=== PATIENT | male | born 1975 | race Caucasian/White ===

== ENCOUNTER 2021-03-06 19:29 | Inpatient (IN) | payer SELFPAY ==
--- OUTSIDE RECORDS SUMMARY | 2021-03-06 19:34 | XMS REPORT | Continuity of Care Document ---
:1975 Author Organization [facility] t Address [address] [place] [address] Care Team Providers Name Role Phone Nelson HERNADEZ Attending Clinician Unavailable BEVERLY Attending Clinician Unavailable ADONIS Attending Clinician Unavailable Nelson HERNADEZ Admitting Clinician Unavailable PAUL Admitting Clinician Unavailable ADONIS Admitting Clinician Unavailable Problems This patient has no known problems. Allergies, Adverse Reactions, Alerts This patient has no known allergies or adverse reactions. Medications This patient has no known medications. Procedures This patient has no known procedures. Results Test Description Test Time Test Comments Results Result Comments Source ALCOHOL, SERUM 2020-01-22 08:58:00 Test Item Value Reference Range Interpretation Comme nts Alcohol % (test code = ALCPC) 0.06 % 0.00-0.00 H Ethanol % 0.00 - 0.10 Sub-clinical 0.11 - 0 .20 Emotional Instability 0.21 - 0.30 Confusion 0.31 - 0.40 Stupor 0.41 - 0.5 0 Coma >.50 Fatal ALCOHOL, [id number] 05:29:00 Test Item Value Reference Range Interpretation Comments Alcohol % (test code = 0.12 % 0.00-0.00 H Jae ol % 0.00 - 0.10 ALCPC) Sub-clinical 0.11 - 0.20 Emotion al Instability 0.21 - 0.30 Confusion 0.31 - 0.40 Stupor 0.41 - 0.50 Co ma >.50 Fa megan DRUG SCREEN [id number] 01:27:00 Test Item Value Reference Range Interpretation Comments PH (test code = 5.5 UPH) Specific [place] 1.025 (test code = USPGR) FT (test code = Negative AMPHET) (qualifier value) FT (test code = Negative NISHA) (qualifier value) FT (test code = Negative BENZO) (qualifier value) FT (test code = Negative CHARLIE) (qualifier value) FT (test code = Negative MTD) (qualifier value) FT (test code = Negative OPIAT) (qualifier value) FT (test code = Negative The followin g table PCP) (qualifier provides an value) interpretive gu michel for the Drugs of Ab use ran on the Siemens Emmett analyzer listed there in: Ampheta mines < 1000 ng/ml = Negative Barbituates < 200 ng/ml = Negat jamshid Benzodiazapines < 200 ngml = Negat jamshid Cocaine < 300 ng/ml = Negat jamshid Methadone < 300 ng/ml = Negat jamshid Opiate < 300 ng/ml = Negat jamshid PCP < 25 ng/ml = Nega tive THC < 50 ng/ml = Negat jamshid Results equal t o or greater than th e above cut-off values = Presumptive Pos itive. Confirmation of Presumptive Pos itive results are ruddy ilable upon request. FT (test code = Negative THC) (qualifier value) URINALYSIS WITH [id number] 01:17:00 Test Item Value Reference Range Interpretation Comments Color (test code = UCOLR) Yellow Clarity (test code = Clear UCLAR) Glucose (test code = NEGATIVE NEGATIVE N UGLUC) Bilirubin (test code = Small NEGATIVE A UBILI) Ketones (test code = NEGATIVE NEGATIVE N UKET) Specific [place] (test 1.025 1.005-1.030 A code = USPGR) Blood (test code = UBLD) Trace-Intact NEGATIVE A PH (test code = UPH) 5.5 4.5-8.0 A Protein (test code = 100 NEGATIVE A UPROT) Urobilinogen (test code = 0.2 >0.2 N U UROB) Nitrite (test code = NEGATIVE NEGATIVE N UNITR) Leukocyte Esterase (test NEGATIVE NEGATIVE N code = ULEUK) WBC (test code = WBCUR) 1-3 0-5 A RBC (test code = RBCUR) 0-2 0-5 A Epithial Cells (test code 0-5 0-10 A = U EPI) Mucous (test code = UMUC) Large None Seen A Bacteria (test code = 1+ None Seen,Trace A UBACT) Urine Casts (test code = Rare Hyaline Cast None Seen A UR CAST) Rare Fine Granular Cast CBC WITH AUTO [id number] 01:16:00 Test Item Value Reference Range Interpretation Comments WBC (test code = 6.73 10\\S\\3/ul 4.80-10.80 WBC) RBC (test code = 4.83 10\\S\\6/ul 4.70-6.10 RBC) Hemoglobin (test 15.5 gm/dl 14.0-18.0 code = HGB) Hematocrit (test 44.1 % 42.0-50.0 code = HCT) MCV (test code = 91.3 fL 80.0-94.0 MCV) MCH (test code = 32.1 pg 27.0-31.0 H MCH) MCHC (test code = 35.1 gm/dl 33.0-37.0 MCHC) RDW (test code = 13.8 % 11.5-14.5 RDWVC) Platelet (test code 76 10\\S\\3/ul 130-400 L = PLT) MPV (test code = 10.4 fL 7.4-10.4 A "NOT MEASUR ED" MPV) RESULTS ARE DIS PLAYED WHEN THE INSTRU MENT HAS A SUPPRESSE D OR UNREPORTABLE RE SULT. THIS WILL MOST OFTEN HAPPEN WITH THE MPV WHEN THERE IS A N ABNORMAL PLATEL ET DISTRIBUTION DU E TO A CRITICAL LOW VA LUE OR PLATELET CLUMPI NG. THE RDW MAY BE SUPPRESSED IF T HERE ARE MULTIPLE PE AKS PRESENT ON THE RBC HISTOGRAM. IN THIS CASE, A MANUAL REVIEW OF THE SLIDE WI LL BE PERFORMED, AND RBC MORPHOLOGY WILL BE NOTED ON THE RE PORT. NE% (test code = 43.7 % 42.0-75.0 NE) LY% (test code = 44.6 % 13.0-42.0 H LY) MO% (test code = 8.2 % 4.0-14.0 MO) EO% (test code = 2.8 % 1.0-5.0 EO) BA% (test code = 0.6 % 0.0-3.0 BA) IG% (test code = 0.1 % 0.0-0.4 IG%) SALICYLATES (Aspirin)2020-01-22 01:16:00 Test Item Value Reference Range Interpretation Comments Salicylate (test code <1.7 mg/dl 0.0-30.0 N Salicy lates Reference = SALI) Ranges: Therap eutic 15 - 30 mg/dl Toxicity >30 mg/dl Leth al >70 mg/dl TSH (Ultra Sensitive)2020-01-22 01:07:00 Test Item Value Reference Range Interpretation Comments TSH (test code = TSH) 1.50 mIU/L 0.47-4.68 [id number] 01:07:00 Test Item Value Reference Range Interpretation Comments Glucose (test code 87 mg/dl 75-110 = GLU) BUN (test code = 6.0 mg/dl 6.0-17.0 BUN) Creatinine (test 0.5 mg/dl 0.4-1.2 code = CREA) Sodium (test code = 142 mmol/l 137-145 NA) Potassium (test 3.6 mmol/l 3.5-5.0 code = K) Chloride (test code 113 mmol/l 98-107 H = CL) CO2 (test code = 26 mmol/l 22-30 CO2) Calcium (test code 7.9 mg/dl 8.4-10.2 L = CALC) T Protein (test 6.7 gm/dl 5.1-8.7 code = TP) Albumin (test code 2.7 gm/dl 3.5-4.6 L = ALB) A/G Ratio (test 0.7 % 1.1-2.2 L code = AGRAT) AST (SGOT) (test 72 U/L 11-36 H code = AST) ALT (SGPT) (test 64 U/L 11-40 H code = ALT) Alkaline Phos (test 129 U/L 47-114 H code = ALKP) Total Bilirubin 1.1 mg/dl 0.2-1.2 (test code = TBIL) Globulin (test code 4.0 gm/dl 2.3-3.5 H = GLOBU) Calcium, Corrected 8.9 mg/dl 8.4-10.2 Various f ormulas exist (test code = for corrected s tu CALCCORR) calcium results , each yielding differ ent values. This corrected resul t was based on the fo rmula: Corrected Calci um = SerumCalcium + [0.8 * ( 4 - SerumAlbu min)] EGFR if >60 [place] (test code mL/min/1.73m\\ = EGFRAA) S\\2 EGFR if Non- >60 Estimate d Glomerular [place] (test code mL/min/1.73m\\ Filtrat ion Rate (eGFR) = EGFRNA) S\\2 Reference Inter vals Decision Points for 18 years and older and average body ma ss: >= 60 Does not exc lude kidney disease. 30 - 59 Suggests modera te chronic kidney disease and indicat es the need for furthe r investigation including asses sment of proteinuria and cardiovascular factors. < 30 Usually in dicates a need for refe rral for assessment and management of c hronic kidney failure. ALCOHOL, [id number] 00:58:00 Test Item Value Reference Range Interpretation Comments Alcohol % (test code = 0.20 % 0.00-0.00 H Jae ol % 0.00 - 0.10 ALCPC) Sub-clinical 0.11 - 0.20 Emotion al Instability 0.21 - 0.30 Confusion 0.31 - 0.40 Stupor 0.41 - 0.50 Co ma >.50 Fa megan ACETAMINOPHEN (Tyenol)2020-01-22 00:58:00 Test Item Value Reference Range Interpretation Comments Acetaminophen (test code = ACET) <2 ug/ml 10-30 L [id number] 00:58:00 Test Item Value Reference Range Interpretation Comments CPK (test code = CPK) 130 U/L 30-135 SALICYLATES (Aspirin)2019-10-18 21:07:00 Test Item Value Reference Range Interpretation Comments Salicylate (test code <1.7 mg/dl 0.0-30.0 N Salicy lates Reference = SALI) Ranges: Therap eutic 15 - 30 mg/dl Toxicity >30 mg/dl Leth al >70 mg/dl ALCOHOL, [id number] 20:49:00 Test Item Value Reference Range Interpretation Comments Alcohol % (test code = 0 % 0.00-0.00 N Jae ol % 0.00 - 0.10 ALCPC) Sub-clinical 0.11 - 0.20 Emotional Instability 0.21 - 0.30 Confusion 0.31 - 0.40 Stupor 0.41 - 0.50 Coma >.50 Fatal ACETAMINOPHEN (Tyenol)2019-10-18 20:49:00 Test Item Value Reference Range Interpretation Comments Acetaminophen (test code = ACET) <2 ug/ml 10-25 L [id number] 20:49:00 Test Item Value Reference Range Interpretation Comments Glucose (test code 110 mg/dl 75-110 = GLU) BUN (test code = 16.0 mg/dl 6.0-17.0 BUN) Creatinine (test 0.8 mg/dl 0.4-1.2 code = CREA) Sodium (test code = 139 mmol/l 137-145 NA) Potassium (test 4.2 mmol/l 3.5-5.0 code = K) Chloride (test code 105 mmol/l 98-107 = CL) CO2 (test code = 28 mmol/l 22-30 CO2) Calcium (test code 9.3 mg/dl 8.4-10.2 = CALC) T Protein (test 8.4 gm/dl 5.1-8.7 code = TP) Albumin (test code 3.0 gm/dl 3.5-4.6 L = ALB) A/G Ratio (test 0.6 % 1.1-2.2 L code = AGRAT) AST (SGOT) (test 78 U/L 11-36 H code = AST) ALT (SGPT) (test 112 U/L 11-40 H code = ALT) Alkaline Phos (test 128 U/L 47-114 H code = ALKP) Total Bilirubin 1.6 mg/dl 0.2-1.2 H (test code = TBIL) Globulin (test code 5.4 gm/dl 2.3-3.5 H = GLOBU) Calcium, Corrected 10.1 mg/dl 8.4-10.2 Various f ormulas exist (test code = for corrected s tu CALCCORR) calcium results , each yielding differ ent values. This corrected resul t was based on the fo rmula: Corrected Calci um = SerumCalcium + [0.8 * ( 4 - SerumAlbu min)] EGFR if >60 [place] (test code mL/min/1.73m\\ = EGFRAA) S\\2 EGFR if Non- >60 Estimate d Glomerular [place] (test code mL/min/1.73m\\ Filtrat ion Rate (eGFR) = EGFRNA) S\\2 Reference Inter vals Decision Points for 18 years and older and average body ma ss: >= 60 Does not exc lude kidney disease. 30 - 59 Suggests modera te chronic kidney disease and indicat es the need for furthe r investigation including asses sment of proteinuria and cardiovascular factors. < 30 Usually in dicates a need for refe rral for assessment and management of c hronic kidney failure. CBC WITH AUTO [id number] 20:26:00 Test Item Value Reference Range Interpretation Comments WBC (test code = 11.21 4.80-10.80 H WBC) 10\\S\\3/ul RBC (test code = 5.75 10\\S\\6/ul 4.70-6.10 RBC) Hemoglobin (test 18.2 gm/dl 14.0-18.0 H code = HGB) Hematocrit (test 51.5 % 42.0-50.0 H code = HCT) MCV (test code = 89.6 fL 80.0-94.0 MCV) MCH (test code = 31.7 pg 27.0-31.0 H MCH) MCHC (test code = 35.3 gm/dl 33.0-37.0 MCHC) RDW (test code = 14.5 % 11.5-14.5 RDWVC) Platelet (test code 116 10\\S\\3/ul 130-400 L = PLT) MPV (test code = 10.6 fL 7.4-10.4 A "NOT MEASUR ED" MPV) RESULTS ARE DIS PLAYED WHEN THE INSTRU MENT HAS A SUPPRESSE D OR UNREPORTABLE RE SULT. THIS WILL MOST OFTEN HAPPEN WITH THE MPV WHEN THERE IS A N ABNORMAL PLATEL ET DISTRIBUTION DU E TO A CRITICAL LOW VA LUE OR PLATELET CLUMPI NG. THE RDW MAY BE SUPPRESSED IF T HERE ARE MULTIPLE PE AKS PRESENT ON THE RBC HISTOGRAM. IN THIS CASE, A MANUAL REVIEW OF THE SLIDE WI LL BE PERFORMED, AND RBC MORPHOLOGY WILL BE NOTED ON THE RE PORT. NE% (test code = 61.5 % 42.0-75.0 NE) LY% (test code = 22.3 % 13.0-42.0 LY) MO% (test code = 13.9 % 4.0-14.0 MO) EO% (test code = 1.1 % 1.0-5.0 EO) BA% (test code = 0.8 % 0.0-3.0 BA) IG% (test code = 0.4 % 0.0-0.4 IG%) DRUG SCREEN [id number] 20:08:00 Test Item Value Reference Range Interpretation Comments PH (test code = UPH) 6.0 Specific [place] >=1.030 (test code = USPGR) Amphetamines (test Positive code = AMPHET) BARBITUATES (test Positive code = NISHA) Benzodiazepines (test Positive code = BENZO) FT (test code = CHARLIE) Negative (qualifier value) FT (test code = MTD) Negative (qualifier value) FT (test code = Negative OPIAT) (qualifier value) FT (test code = PCP) Negative The fol lowing table (qualifier provides an value) interpretive gu michel for the Drugs o f Abuse ran on Siemens Emmett analyzer listed there in: Amphetamines < 1000 ng/ml = Negative Barbituates < 200 ng/ml = Negative Benzodiazapines < 200 ngml = Negative Charlie ayan < 300 ng/ml = Negative Methadone < 300 ng/ml = Negative Opi ate < 300 ng/ml = Negative PCP < 2 5 ng/ml = Negati ve THC < 50 ng/ml = Negative Resul ts equal to or gre ater than the above cut-off values = Presumptive Positive. Confirmation of Presumptive Pos itive results are available upon request. FT (test code = THC) Negative (qualifier value) URINALYSIS WITH [id number] 20:06:00 Test Item Value Reference Range Interpretation Comments Color (test code = UCOLR) [place] Clarity (test code = Sl Cloudy UCLAR) Glucose (test code = 100 NEGATIVE A UGLUC) Bilirubin (test code = Small NEGATIVE A UBILI) Ketones (test code = NEGATIVE NEGATIVE N UKET) Specific [place] (test >=1.030 1.005-1.030 A code = USPGR) Blood (test code = UBLD) NEGATIVE NEGATIVE N PH (test code = UPH) 6.0 4.5-8.0 A Protein (test code = 100 NEGATIVE A UPROT) Urobilinogen (test code = 4.0 >0.2 A U UROB) Nitrite (test code = Positive NEGATIVE A UNITR) Leukocyte Esterase (test Trace NEGATIVE A code = ULEUK) WBC (test code = WBCUR) 8-12 0-5 A RBC (test code = RBCUR) 0-1 0-5 A Epithial Cells (test code None Seen 0-10 A = U EPI) Mucous (test code = UMUC) Moderate None Seen A Bacteria (test code = Trace None Seen,Trace N UBACT) Crystals Urine (test code Trace Calcium None Seen A = URCRYS) Oxalate DRUG SCREEN [id number] 04:26:00 Test Item Value Reference Range Interpretation Comments PH (test code = 6.0 UPH) Specific [place] 1.010 (test code = USPGR) Amphetamines (test Positive code = AMPHET) FT (test code = Negative NISHA) (qualifier value) FT (test code = Negative BENZO) (qualifier value) FT (test code = Negative CHARLIE) (qualifier value) FT (test code = Negative MTD) (qualifier value) FT (test code = Negative OPIAT) (qualifier value) FT (test code = Negative The followin g table PCP) (qualifier provides an value) interpretive gu michel for the Drugs o f Abuse ran on e Siemens Emmett analyzer listed there in: Ampheta mines < 1000 ng/ml = Negative Barbituates < 200 ng/ml = Negative Benzodiazapines < 200 ngml = Negative Charlie ayan < 300 n g/ml = Negative Methadone < 300 ng/ml = Negative Opi ate < 300 n g/ml = Negative P CP < 25 ng/ml = Negati ve THC < 50 ng/ml = Nega tive Results equal t o or greater than th e above cut-off v alues = Presumptive Positive. Confirmation of Presumptive Pos itive results are ruddy ilable upon request. Cannabinoids, THC Positive (test code = THC) URINALYSIS WITH [id number] 04:17:00 Test Item Value Reference Range Interpretation Comments Color (test code = UCOLR) Yellow Clarity (test code = UCLAR) Clear Glucose (test code = UGLUC) NEGATIVE NEGATIVE N Bilirubin (test code = UBILI) NEGATIVE NEGATIVE N Ketones (test code = UKET) NEGATIVE NEGATIVE N Specific [place] (test code = 1.010 1.005-1.030 A USPGR) Blood (test code = UBLD) Trace-Intact NEGATIVE A PH (test code = UPH) 6.0 4.5-8.0 A Protein (test code = UPROT) 30 NEGATIVE A Urobilinogen (test code = U 2.0 >0.2 A UROB) Nitrite (test code = UNITR) NEGATIVE NEGATIVE N Leukocyte Esterase (test code = NEGATIVE NEGATIVE N ULEUK) WBC (test code = WBCUR) None seen 0-5 A RBC (test code = RBCUR) 0-1 0-5 A Epithial Cells (test code = U None seen 0-10 A EPI) Bacteria (test code = UBACT) None seen None Seen,Trace A TROPONIN-I [id number] 03:25:00 Test Item Value Reference Range Interpretation Comments Troponin-I (test <0.015 ng/ml 0.000-0.034 N [address] URL code = TROP) is 0.045 ng/mL for the Siemens Emmett T roponin I. The Joint [place] Society of Cardiology/[facility] College of Card iology (ESC/ACC) and t [facility] of Clinical [place] Standards of [place] boratory Practices (NACB ) recommends that the diagnosis of AM I includes the presence of clinical history suggest jamshid of Acute Coronary Syndrome (ACS) and a max imum concentration o f cardiac troponin exceed ing the 99th percentile of a normal referenc e population [upp er reference limit (URL)] on at least one oc casion during the firs t 24 hours after the clini amos event. XR CHEST AP/PA 1 [id number] 03:24:46EXAMINATION: XR CHEST AP/PA 1 VIEWINDICATION: Dyspnea.[phone]: March 03, 2015.FINDINGS:TUBES and LINES: None.LUNGS: Lungs are well inflated. Lungs are clear. There is no evidence ofpneumonia or pulmonary edema.PLEURA: No pleural effusion or pneumothorax.HEART AND MEDIASTINUM: Thecardiomediastinal silhouette is unremarkable.BONES AND SOFT TISSUES: No acute osseous lesion. Softtissues areunremarkable.UPPER ABDOMEN: No free air under the diaphragm.IMPRESSION:No acute thoracic abnormality.This final report was electronically signed by Dr Jack Lopes MD 10/05/2019 3:18AMDictated By: JACK LOPESDate: 10/05/2019 03:18ACETAMINOPHEN (Tyenol)2019-10-05 03:21:00 Test Item Value Reference Range Interpretation Comments Acetaminophen (test code = ACET) <2 ug/ml 10-25 L ALCOHOL, [id number] 03:21:00 Test Item Value Reference Range Interpretation Comments Alcohol % (test code = 0.07 % 0.00-0.00 H Jae ol % 0.00 - 0.10 ALCPC) Sub-clinical 0.11 - 0.20 Emotion al Instability 0.21 - 0.30 Confusion 0.31 - 0.40 Stupor 0.41 - 0.50 Co ma >.50 Fa megan [id number] 03:12:00 Test Item Value Reference Range Interpretation Comments Lipase (test code = LIPA) 213 U/L 8-223 [id number] 03:12:00 Test Item Value Reference Range Interpretation Comments Glucose (test code 72 mg/dl 75-110 L = GLU) BUN (test code = 10.0 mg/dl 6.0-17.0 BUN) Creatinine (test 0.6 mg/dl 0.4-1.2 code = CREA) Sodium (test code = 137 mmol/l 137-145 NA) Potassium (test 3.6 mmol/l 3.5-5.0 code = K) Chloride (test code 102 mmol/l 98-107 = CL) CO2 (test code = 27 mmol/l 22-30 CO2) Calcium (test code 9.1 mg/dl 8.4-10.2 = CALC) T Protein (test 8.0 gm/dl 5.1-8.7 code = TP) Albumin (test code 2.9 gm/dl 3.5-4.6 L = ALB) A/G Ratio (test 0.6 % 1.1-2.2 L code = AGRAT) AST (SGOT) (test 98 U/L 11-36 H code = AST) ALT (SGPT) (test 74 U/L 11-40 H code = ALT) Alkaline Phos (test 125 U/L 47-114 H code = ALKP) Total Bilirubin 1.5 mg/dl 0.2-1.2 H (test code = TBIL) Globulin (test code 5.1 gm/dl 2.3-3.5 H = GLOBU) Calcium, Corrected 10.0 mg/dl 8.4-10.2 Various f ormulas exist (test code = for corrected s tu CALCCORR) calcium results , each yielding differ ent values. This corrected resul t was based on the fo rmula: Corrected Calci um = SerumCalcium + [0.8 * ( 4 - SerumAlbu min)] EGFR if >60 [place] (test code mL/min/1.73m\\ = EGFRAA) S\\2 EGFR if Non- >60 Estimate d Glomerular [place] (test code mL/min/1.73m\\ Filtrat ion Rate (eGFR) = EGFRNA) S\\2 Reference Inter vals Decision Points for 18 years and older and average body ma ss: >= 60 Does not exc lude kidney disease. 30 - 59 Suggests modera te chronic kidney disease and indicat es the need for furthe r investigation including asses sment of proteinuria and cardiovascular factors. < 30 Usually in dicates a need for refe rral for assessment and management of c hronic kidney failure. SALICYLATES (Aspirin)2019-10-05 03:09:00 Test Item Value Reference Range Interpretation Comments Salicylate (test code <1.7 mg/dl 0.0-30.0 N Salicy lates Reference = SALI) Ranges: Therap eutic 15 - 30 mg/dl Toxicity >30 mg/dl Leth al >70 mg/dl [id number] 02:58:00 Test Item Value Reference Range Interpretation Comments aPTT (test code = PTT) 27.4 seconds 25.3-35.7 PT AND [id number] 02:58:00 Test Item Value Reference Range Interpretation Comments Protime (test code 11.1 seconds 9.0-11.8 = PT) INR (test code = 1.1 0.9-1.1 INR results are INR) intended ONLY t o monitor Oral Anticoagulant t herapy in stablized pa tients. The INR Therape utic Range is 2.0 - 3.0 Patients with a mechanical hear t, the INR Range is 2. 5 - 3.5 CBC WITH AUTO [id number] 02:35:00 Test Item Value Reference Range Interpretation Comments WBC (test code = 6.84 10\\S\\3/ul 4.80-10.80 WBC) RBC (test code = 5.08 10\\S\\6/ul 4.70-6.10 RBC) Hemoglobin (test 16.1 gm/dl 14.0-18.0 code = HGB) Hematocrit (test 44.4 % 42.0-50.0 code = HCT) MCV (test code = 87.4 fL 80.0-94.0 MCV) MCH (test code = 31.7 pg 27.0-31.0 H MCH) MCHC (test code = 36.3 gm/dl 33.0-37.0 MCHC) RDW (test code = 13.2 % 11.5-14.5 RDWVC) Platelet (test code 72 10\\S\\3/ul 130-400 L = PLT) MPV (test code = 9.9 fL 7.4-10.4 A "NOT MEASUR ED" MPV) RESULTS ARE DIS PLAYED WHEN THE INSTRU MENT HAS A SUPPRESSE D OR UNREPORTABLE RE SULT. THIS WILL MOST OFTEN HAPPEN WITH THE MPV WHEN THERE IS A N ABNORMAL PLATEL ET DISTRIBUTION DU E TO A CRITICAL LOW VA LUE OR PLATELET CLUMPI NG. THE RDW MAY BE SUPPRESSED IF T HERE ARE MULTIPLE PE AKS PRESENT ON THE RBC HISTOGRAM. IN THIS CASE, A MANUAL REVIEW OF THE SLIDE WI LL BE PERFORMED, AND RBC MORPHOLOGY WILL BE NOTED ON THE RE PORT. NE% (test code = 51.2 % 42.0-75.0 NE) LY% (test code = 34.4 % 13.0-42.0 LY) MO% (test code = 11.8 % 4.0-14.0 MO) EO% (test code = 1.9 % 1.0-5.0 EO) BA% (test code = 0.4 % 0.0-3.0 BA) IG% (test code = 0.3 % 0.0-0.4 IG%)
[2021-03-06 21:08] LABS: Protime INR 1.21
[2021-03-06 21:12] LABS: Absolute Lymphocytes (CBC) 3.2 K/uL (0.7-4.9); Basophils % 0.5 % (0-1.3); Hematocrit 51.6 % (39.6-49.0); Lymphocytes % 22.2 % (15.3-44.8); MPV 10.1 fL (7.6-11.3); RBC Red Blood Cell Count 5.56 M/uL (4.33-5.43)
[2021-03-06] MEDS ORDERED: NA CHLORIDE 0.9% 2,000 ML ONE (21:12)
--- NOTE | 2021-03-06 21:20 | RAD REPORT ---
EXAM DESCRIPTION: [facility] Single View03/06/2021 9:11 pm CLINICAL HISTORY: Cough COMPARISON: none FINDINGS: Left lateral lung base is not included in the field of view and is not evaluated. The visualized lungs appear clear of acute infiltrate. The heart is normal size IMPRESSION: No acute abnormalities displayed
[2021-03-06 21:37] LABS: ALT/SGPT 109 U/L (12-78); AST/SGOT 117 U/L (15-37); Albumin 2.7 g/dL (3.4-5.0); Alkaline Phosphatase 108 U/L (45-117); Amylase 59 U/L (25-115); BUN Blood Urea Nitrogen 14 mg/dL (7-18); Bicarbonate 19 mmol/L (21-32); Bilirubin Direct 0.6 mg/dL (0-0.2); Bilirubin Total 1.8 mg/dL (0.2-1.0); CKMB Creatine Kinase MB 3.7 ng/mL (1.0-3.6); Creatine Phosphokinase 711 U/L (39-308); Glucose Level 95 mg/dL (74-106); Lipase 94 U/L (73-393); Potassium 3.4 mmol/L (3.5-5.1); Protein, Total 7.8 g/dL (6.4-8.2); Sodium Level 134 mmol/L (136-145); Troponin (Emerg Dept Use Only) < 0.02 ng/mL (0.0-0.045)
[2021-03-06 21:54] LABS: Urine Blood Trace-intact (Negative); Urine Glucose Negative (Negative); Urine Protein Negative (Negative); Urine Specific Gravity <=1.005 (1.005-1.030)
[2021-03-06] MEDS ORDERED: METOPROLOL TARTRATE 5 MG/5 ML INJ IV ONE ×2 (21:56→22:14)
[2021-03-06] MEDS ORDERED: MORPHINE 4 MG/ML SYR ONE (22:13)
[2021-03-06] MEDS ORDERED: ONDANSETRON 4 MG/2 ML VIAL ONE (22:13)
[2021-03-06 22:24] LABS: Blood Morphology Comment NOT SEEN (NOT SEEN); Platelet Estimate DECR; White Blood Cell Scan OK (OK)
[2021-03-06 22:25] LABS: Barbiturates NEGATIVE (NEGATIVE); Benzodiazepines NEGATIVE (NEGATIVE); Cocaine NEGATIVE (NEGATIVE); METHAMPHETAM POSITIVE (NEGATIVE); Methadone NEGATIVE (NEGATIVE); Opiates NEGATIVE (NEGATIVE); Phencyclidine NEGATIVE (NEGATIVE); THC Cannibis NEGATIVE (NEGATIVE)
[2021-03-06 22:29] LABS: Urine Bacteria <20 /HPF (NONE SEEN); Urine RBC <5 /HPF (NONE SEEN)
[2021-03-06] MEDS ORDERED: METOPROLOL TAR 50 MG TAB ONE (23:03)
[2021-03-06] MEDS ORDERED: NICOTINE 21 MG/PAT TD ONE (23:16)
[2021-03-06] MEDS ORDERED: NA CHLORIDE 0.9% 1,000 ML ONE (23:16)
--- NOTE | 2021-03-06 23:34 | ER ---
Nurse's Notes [facility] Name: Alonso Leigh Age: 45 yrs Sex: Male : 1975 Arrival Date: 03/06/2021 Time: 19:34 Bed 20 Private MD: Diagnosis: Paroxysmal atrial fibrillation-with RVR Presentation: 03/06 19:42 Chief complaint: Patient states: "A couple days ago I started feeling body aches, vg1 feeling fatigue, headache, trouble sleeping and I googled it and it looks like I may have Covid. Sometimes I feel shortness of breath." Pt also reports NVD. Coronavirus screen: Client denies travel out of the [place] in the last 14 days. Client presents with at least one sign or symptom that may indicate coronavirus-19. Standard/surgical mask placed on the client. Ebola Screen: Patient negative for fever greater than or equal to 101.5 degrees Fahrenheit, and additional compatible Ebola Virus Disease symptoms. Initial Sepsis Screen: Does the patient meet any 2 criteria? No. Patient's initial sepsis screen is negative. Does the patient have a suspected source of infection? No. Patient's initial sepsis screen is negative. Risk Assessment: Do you want to hurt yourself or someone else? Patient reports no desire to harm self or others. Onset of symptoms was March 04, 2021. 19:42 Method Of Arrival: Ambulatory [facility] 19:42 Acuity: SHAWN 3 vg1 Triage Assessment: 19:44 Headache History: The patient has had previous headaches and this one is different than vg1 previous episodes, and this one is more severe than previous episodes. General: Appears in no apparent distress. uncomfortable, Behavior is calm, cooperative. Pain: Pain currently is 8 out of 10 on a pain scale. Pain began 2-3 days ago. Also complains of nausea, shortness of breath. Neuro: Level of Consciousness is awake, alert, obeys commands, Oriented to person, place, time, situation, Reports headache. Historical: - Allergies: 19:44 No Known Allergies; vg1 - Home Meds: 19:44 None [Active]; vg1 - PMHx: 19:44 Hypertensive disorder; vg1 - Immunization history:: Adult Immunizations up to date. - Social history:: Smoking status: Patient reports the use of cigarette tobacco products, smokes one pack cigarettes per day. Screenin:23 Abuse screen: Denies threats or abuse. Nutritional screening: No deficits noted. ea Tuberculosis screening: No symptoms or risk factors identified. Fall Risk None identified. Assessment: 20:58 General: Appears uncomfortable, Behavior is appropriate for age. Pain: Complains of ea pain in generalized pain. Neuro: Level of Consciousness is awake, alert, obeys commands, Oriented to person, place, time. Cardiovascular: Patient's skin is warm and dry. Respiratory: Airway is patent Respiratory effort is even, unlabored, Respiratory pattern is regular, symmetrical. Derm: Skin is pink, warm \\T\\ dry. 22:22 Reassessment: Patient and/or family updated on plan of care and expected duration. Pain ea level reassessed. Patient is alert, oriented x 3, equal unlabored respirations, skin warm/dry/pink. Returned from CT. 03/07 00:22 Reassessment: Patient and/or family updated on plan of care and expected duration. Pain ea level reassessed. Patient is alert, oriented x 3, equal unlabored respirations, skin warm/dry/pink. Pt admitted admitted to second floor. Report given to receiving nurse. Pt left ED via wheelchair per tech. Pt tolerating well. Vital Signs: 03/06 19:42 BP 130 / 92; Pulse 75; Resp 18; Temp 97.8; Pulse Ox 98% ; Weight 90.72 kg; Height 6 ft. vg1 1 in. (185.42 cm); Pain 8/10; 21:00 Pulse 175; Resp 22; Pulse Ox 99% ; ea 21:40 BP 135 / 90; Pulse 142; Resp 18; Pulse Ox 100% ; ea 22:22 BP 143 / 108; Pulse 120; Resp 20; Pulse Ox 100% ; ea 03/07 00:20 BP 140 / 85; Pulse 110; Resp 16; Pulse Ox 99% ; ea 03/06 19:42 Body Mass Index 26.39 (90.72 kg, 185.42 cm) vg1 ED Course: 03/06 19:34 Patient arrived in ED. es 19:44 Triage completed. vg1 19:44 Arm band placed on Patient placed in waiting room, Patient notified of wait time. vg1 20:23 Latonya Brown, RN is Primary Nurse. ea 20:26 Rory Matt MD is Attending Physician. [facility] 20:58 Patient has correct armband on for positive identification. Bed in low position. Call ea light in reach. Side rails up X2. 20:58 Inserted saline lock: 20 gauge in right forearm, using aseptic technique. ea 21:10 Chest Single View XRAY In Process Unspecified. EDMS 22:14 CT Head Brain wo Cont In Process Unspecified. EDMS 22:14 CT Chest For PE Angio In Process Unspecified. EDMS 22:14 CT Abd/Pelvis - IV Contrast Only In Process Unspecified. EDMS 23:33 En Lopez MD is Hospitalizing Provider. [facility] 03/07 00:18 No provider procedures requiring assistance completed. Patient admitted, IV remains in ea place. Administered Medications: 03/06 21:00 Drug: NS 0.9% 1000 ml Route: IV; Rate: 1 bolus; Site: right forearm; ea 22:30 Follow up: Response: No adverse reaction; IV Status: Completed infusion; IV Intake: ea 1000ml 21:45 Drug: Lopressor (metoprolol) 5 mg Route: IVP; Site: right forearm; ea 21:48 Drug: NS 0.9% 1000 ml Route: IV; Rate: 1 bolus; Site: right forearm; ea 03/07 00:20 Follow up: Response: No adverse reaction; IV Status: Completed infusion; IV Intake: ea 1000ml 03/06 22:20 Drug: morphine 4 mg Route: IVP; Site: right forearm; ea 22:46 Follow up: Response: No adverse reaction ea 22:20 Drug: Zofran (Ondansetron) 4 mg Route: IVP; Site: right forearm; ea 03/07 00:19 Follow up: Response: No adverse reaction 03/06 22:20 Drug: Lopressor (metoprolol) 5 mg Route: IVP; Site: right forearm; ea 22:46 Drug: Lopressor (metoprolol TARTRATE) 50 mg Route: PO; ea 03/07 00:20 Follow up: Response: No adverse reaction 03/06 22:58 Drug: Nicoderm CQ Patch 21 mg/24 hr 1 patches Route: Transdermal; Site: affected area; ea 22:59 Drug: NS 0.9% 1000 ml Route: IV; Rate: 100 ml/hr; Site: right antecubital; ea 03/07 00:19 Follow up: Response: No adverse reaction; IV Status: Infusion continued upon admission ea 03/06 23:31 Drug: Lopressor (metoprolol) 5 mg Route: IVP; Site: right forearm; ea 03/07 00:00 Follow up: Response: No adverse reaction ea 00:21 Drug: Lopressor (metoprolol) 5 mg Route: IVP; Site: right forearm; ea 00:21 Follow up: Response: No adverse reaction ea Intake: 03/06 22:30 IV: 1000ml; Total: 1000ml. ea 03/07 00:20 IV: 1000ml; Total: 2000ml. ea Outcome: 03/06 23:33 Decision to Hospitalize by Provider. [facility] 03/07 00:19 Condition: stable ea Instructed on the need for admit, Demonstrated understanding of instructions. 00:21 Admitted to Med/surg accompanied by tech, via wheelchair, room 224, with chart, Report ea called to Receiving nurse 00:24 Patient left the ED. ea Signatures: Dispatcher [employer] Denise Jasso Elena, RN RN Aaliyah Dee RN RN vg1 Rory Matt MD MD [id number] Corrections: (The following items were deleted from the chart) 03/06 19:45 19:42 Chief complaint: Patient states: "A couple days ago I started feeling body aches, vg1 feeling fatigue, headache, trouble sleeping and I googled it and it looks like I may have Covid. Sometimes I feel shortness of breath." vg1
--- NOTE | 2021-03-06 23:34 | EDPHYS ---
Physician Documentation [facility] Name: Alonso Leigh Age: 45 yrs Sex: Male : 1975 Arrival Date: 03/06/2021 Time: 19:34 Bed 20 Private MD: ED Physician Rory Matt HPI: 03/06 22:14 This 45 yrs old Male presents to ER via Ambulatory with complaints of mh7 Headache, muscle cramps,trouble sleeping,fatigue. 22:14 The patient or guardian reports cough, that is intermittent, described as moderate, mh7 with no sputum, flu symptoms, low-grade fever, myalgias, no appetite, fatigue. Onset: The symptoms/episode began/occurred 2 day(s) ago. Severity of symptoms: At their worst the symptoms were moderate, last night, in the emergency department the symptoms are unchanged. Modifying factors: The symptoms are alleviated by nothing, the symptoms are aggravated by nothing. Associated signs and symptoms: Pertinent positives: fever, nausea, vomiting, chest pain, SOB. Historical: - Allergies: 19:44 No Known Allergies; vg1 - Home Meds: 19:44 None [Active]; vg1 - PMHx: 19:44 Hypertensive disorder; vg1 - Immunization history:: Adult Immunizations up to date. - Social history:: Smoking status: Patient reports the use of cigarette tobacco products, smokes one pack cigarettes per day. ROS: 22:14 Eyes: Negative for injury, pain, redness, and discharge, ENT: Negative for injury, mh7 pain, and discharge, Neck: Negative for injury, pain, and swelling, Back: Negative for injury and pain, : Negative for injury, bleeding, discharge, and swelling, MS/Extremity: Negative for injury and deformity, Skin: Negative for injury, rash, and discoloration, Psych: Negative for depression, anxiety, suicide ideation, homicidal ideation, and hallucinations, Allergy/Immunology: Negative for hives, rash, and allergies, Endocrine: Negative for neck swelling, polydipsia, polyuria, polyphagia, and marked weight changes, Hematologic/Lymphatic: Negative for swollen nodes, abnormal bleeding, and unusual bruising. Exam: 22:14 Head/Face: Normocephalic, atraumatic. Eyes: Pupils equal round and reactive to light, mh7 extra-ocular motions intact. Lids and lashes normal. Conjunctiva and sclera are non-icteric and not injected. Cornea within normal limits. Periorbital areas with no swelling, redness, or edema. Neck: Trachea midline, no thyromegaly or masses palpated, and no cervical lymphadenopathy. Supple, full range of motion without nuchal rigidity, or vertebral point tenderness. No Meningismus. Chest/axilla: Normal chest wall appearance and motion. Nontender with no deformity. No lesions are appreciated. 22:14 Abdomen/GI: Soft, non-tender, with normal bowel sounds. No distension or tympany. No guarding or rebound. No evidence of tenderness throughout. Back: No spinal tenderness. No costovertebral tenderness. Full range of motion. Skin: Warm, dry with normal turgor. Normal color with no rashes, no lesions, and no evidence of cellulitis. MS/ Extremity: Pulses equal, no cyanosis. Neurovascular intact. Full, normal range of motion. Neuro: Awake and alert, GCS 15, oriented to person, place, time, and situation. Cranial nerves II-XII grossly intact. Motor strength 5/5 in all extremities. Sensory grossly intact. Cerebellar exam normal. Normal gait. Psych: Awake, alert, with orientation to person, place and time. Behavior, mood, and affect are within normal limits. 22:14 Constitutional: The patient appears in no acute distress, alert, awake, obviously ill. 22:14 Cardiovascular: Rate: tachycardic, Rhythm: irregularly irregular, Pulses: no pulse deficits are appreciated, Heart sounds: normal, normal S1and S2, Edema: is not appreciated, JVD: is not appreciated. 22:14 Respiratory: the patient does not display signs of respiratory distress, Respirations: normal, Breath sounds: rhonchi, that are mild, are scattered, Respiratory rate: 20 Vital Signs: 19:42 BP 130 / 92; Pulse 75; Resp 18; Temp 97.8; Pulse Ox 98% ; Weight 90.72 kg; Height 6 ft. vg1 1 in. (185.42 cm); Pain 8; 21:00 Pulse 175; Resp 22; Pulse Ox 99% ; ea 21:40 BP 135 / 90; Pulse 142; Resp 18; Pulse Ox 100% ; ea 22:22 BP 143 / 108; Pulse 120; Resp 20; Pulse Ox 100% ; ea 07/10 00:20 BP 140 / 85; Pulse 110; Resp 16; Pulse Ox 99% ; 03/06 19:42 Body Mass Index 26.39 (90.72 kg, 185.42 cm) vg1 MDM: 03/06 23:31 Differential Diagnosis: Bronchitis Influenza Upper Respiratory Infection Viral Syndrome 7 Pneumonia. Data reviewed: vital signs, nurses notes, lab test result(s), cardiac enzymes, CBC, electrolytes, urinalysis, urine drug screen, EKG, radiologic studies, CT scan, plain films. Data interpreted: Pulse oximetry: on room air is 100 %. Interpretation: normal. Counseling: I had a detailed discussion with the patient and/or guardian regarding: the historical points, exam findings, and any diagnostic results supporting the discharge/admit diagnosis, the presence of at least one elevated blood pressure reading (>120/80) during this emergency department visit, lab results, radiology results, the need for further work-up and treatment in the hospital. Response to treatment: the patient's symptoms have mildly improved after treatment. 23:33 Patient medically screened. [facility] 03/06 20:26 Order name: Amylase, Serum 03/06 20:26 Order name: Basic Metabolic Panel; Complete Time: 21:45 03/06 20:26 Order name: Blood Culture Adult (2) 03/06 20:26 Order name: CBC with Diff; Complete Time: 22:29 03/06 20:26 Order name: CPK; Complete Time: 21:45 03/06 20:26 Order name: Ckmb; Complete Time: 21:45 03/06 20:26 Order name: LFT's; Complete Time: 21:45 03/06 20:26 Order name: Lactate; Complete Time: 21:45 03/06 20:26 Order name: Lipase; Complete Time: 21:45 03/06 20:26 Order name: Procalcitonin; Complete Time: 21:45 03/06 20:26 Order name: Protime (+inr); Complete Time: 21:45 03/06 20:26 Order name: Ptt, Activated; Complete Time: 21:45 03/06 20:26 Order name: Troponin (emerg Dept Use Only); Complete Time: :45 03/06 20:26 Order name: Urine Microscopic Only; Complete Time: 22:45 03/06 20:26 Order name: Chest Single View XRAY; Complete Time: 21:45 03/06 20:27 Order name: Amylase; Complete Time: 21:45 [facility] 03/06 20:54 Order name: UDS; Complete Time: 22:29 [facility] 03/06 20:56 Order name: Flu 03/06 20:57 Order name: Influenza Screen (A ; Complete Time: 21:45 [facility] 03/06 21:03 Order name: Thyroid Stimulating Hormone; Complete Time: 21:45 [facility] 03/06 21:49 Order name: CT Head Brain wo Cont [facility] 03/06 21:49 Order name: CT Chest For PE Angio [facility] 03/06 21:49 Order name: CT Abd/Pelvis - IV Contrast Only [facility] 03/06 21:54 Order name: Urine Dipstick-Ancillary; Complete Time: 22:13 [facility] 03/06 21:55 Order name: SARS-COV-2 RT PCR; Complete Time: 22:13 [facility] 03/06 22:24 Order name: CBC Smear Scan; Complete Time: 22:45 [facility] 03/06 20:26 Order name: Cardiac monitoring; Complete Time: 20:58 03/06 20:26 Order name: EKG - Nurse/Tech; Complete Time: 20:58 03/06 20:26 Order name: IV Saline Lock - Large Bore; Complete Time: 20:58 03/06 20:26 Order name: Labs collected and sent; Complete Time: 20:58 03/06 20:26 Order name: O2 Per Protocol; Complete Time: 20:58 03/06 20:26 Order name: O2 Sat Monitoring; Complete Time: 20:58 03/06 20:26 Order name: Urine Dipstick-Ancillary (obtain specimen); Complete Time: 22:20 ea Administered Medications: 21:00 Drug: NS 0.9% 1000 ml Route: IV; Rate: 1 bolus; Site: right forearm; ea 22:30 Follow up: Response: No adverse reaction; IV Status: Completed infusion; IV Intake: ea 1000ml 21:45 Drug: Lopressor (metoprolol) 5 mg Route: IVP; Site: right forearm; ea 21:48 Drug: NS 0.9% 1000 ml Route: IV; Rate: 1 bolus; Site: right forearm; ea 03/07 00:20 Follow up: Response: No adverse reaction; IV Status: Completed infusion; IV Intake: ea 1000ml 03/06 22:20 Drug: morphine 4 mg Route: IVP; Site: right forearm; ea 22:46 Follow up: Response: No adverse reaction ea 22:20 Drug: Zofran (Ondansetron) 4 mg Route: IVP; Site: right forearm; ea 03/07 00:19 Follow up: Response: No adverse reaction ea 03/06 22:20 Drug: Lopressor (metoprolol) 5 mg Route: IVP; Site: right forearm; ea 22:46 Drug: Lopressor (metoprolol TARTRATE) 50 mg Route: PO; ea 03/07 00:20 Follow up: Response: No adverse reaction ea 03/06 22:58 Drug: Nicoderm CQ Patch 21 mg/24 hr 1 patches Route: Transdermal; Site: affected area; ea 22:59 Drug: NS 0.9% 1000 ml Route: IV; Rate: 100 ml/hr; Site: right antecubital; ea 03/07 00:19 Follow up: Response: No adverse reaction; IV Status: Infusion continued upon admission ea 03/06 23:31 Drug: Lopressor (metoprolol) 5 mg Route: IVP; Site: right forearm; ea 03/07 00:00 Follow up: Response: No adverse reaction ea 00:21 Drug: Lopressor (metoprolol) 5 mg Route: IVP; Site: right forearm; ea 00:21 Follow up: Response: No adverse reaction ea Disposition Summary: 03/06/21 23:33 Hospitalization Ordered Hospitalization Status: Inpatient Admission [facility] Provider: En Lopez Location: Telemetry/MedSur (Inpatient) [facility] Condition: Stable [facility] Problem: new [facility] Symptoms: have improved [facility] Bed/Room Type: Standard [facility] Room Assignment: 224(03/07/21 00:04) Diagnosis - Paroxysmal atrial fibrillation - with RVR [facility] Forms: - Medication Reconciliation Form [facility] - SBAR form [facility] Signatures: Dispatcher [employer] EDMS Parish Ulrich FNP-C EYE SPECIALIST-Cla1 Elizabeth Alvares RN RN Latonya Edwards RN Aaliyah Mckeon ea, RN RN vg1 Rory Matt MD MD [facility] Corrections: (The following items were deleted from the chart) 03/06 21: 20:27 CORONAVIRUS+MR.LAB.WILVER ordered. EDMS EDMS 20:53 THYROID STIMULAT HORMONE+C.LAB.WILVER ordered. EDMS EDMS 03/07 00:04 03/06 23:33 [facility] cg
--- NOTE | 2021-03-06 23:46 | P.HP ---
Certification for Inpatient Patient admitted to: Observation With expected LOS: <2 Midnights Patient will require the following post-hospital care: None Practitioner: I am a practitioner with admitting privileges, knowledge of patient current condition, hospital course, and medical plan of care. Services: Services provided to patient in accordance with Admission requirements found in Title 42 Section 412.3 of the Code of Federal Regulations Patient History Date of Service: 03/06/21 Primary Care Provider: none Reason for admission: AFib RVR History of Present Illness: 45-year-old male with history of hypertension, alcoholic cirrhosis of liver, alcohol/tobacco abuse presents emergency department for malaise, fatigue, diarrhea, body aches. Patient reports he has also been having palpitations over the course of the last 2 days. Patient evaluated in the emergency department found to be in AFib RVR at a rate around 150-170 on arrival. Patient given IV Lopressor and p.o. metoprolol in the ER. Rate has improved to around 115 to 120. Labs significant for white blood cell count 14.5 hemoglobin 18 hematocrit 51 platelets 90 to sodium 134 potassium 3.4 carbon dioxide 19 T. bili 1.8 d bili 0.6 AST 117 ALT 109 CPK a 711 patient reports that his last alcoholic beverage was this morning he had 2 beers, patient reports drinking between 6 and 12 beers per day every day. Patient also tested positive for amphetamines but adamantly denies any recreational drug use. Patient reports in the past he was told he may have lung cancer, CT chest abdomen pelvis with contrast was obtained with which demonstrated no PE, 10 mm solid pulmonary nodule recommended 3 months followup, cirrhosis, cholelithiasis. ED wishes to admit for further evaluation and management of AFib RVR. 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 moist/pink Neck: Supple, 2+ carotid pulse no bruit, No LAD Respiratory: Clear to auscultation bilaterally, Normal air movement Cardiovascular: Regular rate/rhythm, Normal S1 S2 Gastrointestinal: Normal bowel sounds, No tenderness Musculoskeletal: No tenderness Integumentary: No rashes Neurological: Normal speech, Normal strength at 5/5 x4 extr, Normal tone, Normal affect - Studies Laboratory Data (last 24 hrs) 03/06/21 20:53: PT 13.9 H, INR 1.21, APTT 33.8 03/06/21 20:53: WBC 14.50 H, Hgb 18.1 H, Hct 51.6 H, Plt Count 92 L 03/06/21 20:53: Sodium 134 L, Potassium 3.4 L, BUN 14, Creatinine 0.56, Glucose 95, Total Bilirubin 1.8 H, AST 117 H, ALT 109 H, Alkaline Phosphatase 108, Amylase 59, Lipase 94 Microbiology Data (last 24 hrs): 03/06/21 20:55 Nasopharnyx Influenza Type A Antigen Screen - Final 03/06/21 20:55 Nasopharnyx Influenza Type B Antigen Screen - Final Assessment and Plan - Plan Assessment New onset AFib RVR Dehydration Alcoholic cirrhosis of the liver with chronic alcohol abuse 10 mm pulmonary nodule-history of tobacco abuse Positive for amphetamines Plan New onset AFib RVR: RIC VASC2 score= 1, plt 92, will continue with daily aspirin, metoprolol 50 p.o. b.i.d., p.r.n. Lopressor throughout the evening for rate control. Cardiology consult in place. Patient will likely need further evaluation on outpatient basis, thyroid panel pending. Recommend alcohol/amphetamine cessation. DVT prophylaxis with SCDs due to low platelet count. Dehydration: Patient received 2 L normal saline bolus in the ER, continue NS at 100 cc per hr. repeat CPK with morning labs. Alcoholic cirrhosis of the liver with chronic alcohol abuse: Appears stable at this time. Patient need to follow up with GI discharge. 10 mm pulmonary nodule-history of tobacco abuse: Recommend follow up CT in 3 months. Patient was made aware. Positive for amphetamines: Patient adamantly denies use of recreational drugs, counseled on risks related to heart disease/AFib. Discharge Plan: Home Plan to discharge in: 24 Hours - Advance Directives Does patient have a Living Will: No Does patient have a Durable POA for Healthcare: No - Code Status/Comfort Care Code Status Assessed: Yes (Full code) Code Status: Full Code Critical Care: No Time Spent Managing Pts Care (In Minutes): 55
[2021-03-07] MEDS ORDERED: METOPROLOL TARTRATE 5 MG/5 ML INJ IV ONE (00:30)
[2021-03-07] MEDS ORDERED: ONDANSETRON 4 MG/2 ML VIAL IV PRN (00:36)
[2021-03-07] MEDS: NA CHLORIDE 0.9% 1,000 ML IV SCH ×3 (00:36→16:45)
[2021-03-07] MEDS ORDERED: LORazepam 2 MG/ML VIAL IV PRN (00:36)
[2021-03-07 00:40] VITALS: BMI 26.4
[2021-03-07 01:02] VITALS: O2SAT 99
[2021-03-07 06:01] LABS: Absolute Lymphocytes (CBC) 2.2 K/uL (0.7-4.9); Basophils % 0.6 % (0-1.3); Hematocrit 47.2 % (39.6-49.0); Lymphocytes % 20.5 % (15.3-44.8); RBC Red Blood Cell Count 5.02 M/uL (4.33-5.43)
[2021-03-07 06:25] LABS: ALT/SGPT 90 U/L (12-78); AST/SGOT 97 U/L (15-37); Albumin 2.4 g/dL (3.4-5.0); Alkaline Phosphatase 90 U/L (45-117); BUN Blood Urea Nitrogen 9 mg/dL (7-18); Bicarbonate 22 mmol/L (21-32); Bilirubin Total 1.6 mg/dL (0.2-1.0); Glucose Level 98 mg/dL (74-106); HDL Cholesterol 44 mg/dL (40-60); LDL Cholesterol, Calculated 38 (<130); Potassium 3.6 mmol/L (3.5-5.1); Protein, Total 6.6 g/dL (6.4-8.2); Sodium Level 136 mmol/L (136-145)
[2021-03-07 06:27] LABS: Magnesium 1.4 mg/dL (1.8-2.4)
[2021-03-07] MEDS ORDERED: Magnesium Sulfate 2gm IVPB 2 G/50 ML BAG IV ONE (07:00)
[2021-03-07] MEDS ORDERED: POTASSIUM CL SA 10 MEQ TAB PO ONE (08:00)
[2021-03-07] MEDS ORDERED: KETOROLAC 30 MG/ML INJ IV ONE ×2 (08:25→21:16)
[2021-03-07] MEDS: ASPIRIN EC 81 MG TAB PO SCH (08:37)
[2021-03-07] MEDS ORDERED: METOPROLOL TAR 50 MG TAB PO SCH (09:00)
[2021-03-07] MEDS ORDERED: levETIRAcetam 1,000 MG in NA CHLORIDE 0.9% 100 ML IV ONE (11:00)
--- NOTE | 2021-03-07 14:12 | P.PN ---
Subjective Date of Service: 03/07/21 Primary Care Provider: none Chief Complaint: AFib RVR Subjective: No new changes (headache, body aches, overall not feeling well, no nausea/vomiting. no new issues/complaints, heart rate better controlled, still afib) Review of Systems 10-point ROS is otherwise unremarkable Physical Examination - Vital Signs Temperature: 97.0 F Blood Pressure: 124/86 Pulse: 86 Respirations: 14 Pulse Ox (%): 95 - Studies Laboratory Data (last 24 hrs) 03/07/21 05:50: Sodium 136, Potassium 3.6, BUN 9, Creatinine 0.45 L, Glucose 98, Magnesium 1.4 L*, Total Bilirubin 1.6 H, AST 97 H, ALT 90 H, Alkaline Phosphatase 90, Triglycerides 97, Cholesterol 101, HDL Cholesterol 44, Cholesterol/HDL Ratio 2.30 03/07/21 05:50: WBC 10.90 D, Hgb 16.2, Hct 47.2, Plt Count 77 L 03/06/21 20:53: PT 13.9 H, INR 1.21, APTT 33.8 03/06/21 20:53: WBC 14.50 H, Hgb 18.1 H, Hct 51.6 H, Plt Count 92 L 03/06/21 20:53: Sodium 134 L, Potassium 3.4 L, BUN 14, Creatinine 0.56, Glucose 95, Total Bilirubin 1.8 H, AST 117 H, ALT 109 H, Alkaline Phosphatase 108, Amylase 59, Lipase 94 Microbiology Data (last 24 hrs): 03/06/21 20:55 Nasopharnyx Influenza Type A Antigen Screen - Final 03/06/21 20:55 Nasopharnyx Influenza Type B Antigen Screen - Final Assessment & Plan Physician Review Additional Text: Physical Exam Gen: AAOx3, uncomfortable HEENT: dry mucous membranes, PERRL CV: irregularly irregular rhythm, HR:100-110s, no murmur, no edema Respiratory: Clear to auscultation bilaterally, Normal air movement Abd: soft, nontender, nondistended Musculoskeletal: No tenderness Integumentary: No 3 soft nodules on face Neurological: Normal strength at 5/5 x4 extr, Normal affect Problem List New onset AFib RVR Dehydration Alcoholic cirrhosis of the liver with chronic alcohol abuse 10 mm pulmonary nodule-history of tobacco abuse Positive for amphetamines -CHADSVASc: 1, continue daily aspirin, metoprolol 50 PO BID, may need to increase -cardiology consulted - in agreement with plan -monitor for alcohol withdrawal - reports mild shakiness previously when discontinuing alcohol -body aches likely from possible seizure he had ~2 nights ago, monitor CPK levels -neuro consulted, start keppra 1g load today, 500mg BID - safest with h/o alcohol use and cirrhosis -uninsured -will give Toradol x1 for headache/body aches VTE: aspirin Code: full Dispo: anticipate dc home tomorrow Time Spent Managing Pts Care (In Minutes): 35
[2021-03-07] MEDS ORDERED: FOLIC ACID 1 MG TABLET PO ONE (16:00)
[2021-03-07] MEDS ORDERED: THIAMINE 200 MG/2 ML INJ IVP ONE (16:00)
[2021-03-07] MEDS: levETIRAcetam 500 MG TAB PO SCH (20:37)
--- NOTE | 2021-03-07 21:43 | RAD REPORT ---
EXAM DESCRIPTION: CT - Head Brain Wo Cont - 03/07/2021 6:42 am CLINICAL HISTORY: 45 years, Male, HEADACHE COMPARISON: None. FINDINGS: Multiple transaxial tomograms of the brain were obtained from the base of the skull to the vertex without contrast. 2-D multiplanar reformats and the coronal and sagittal plane were performed and reviewed. This exam was performed according to our departmental dose-optimization protocol, which includes auto mated exposure control, adjustment of the mA and/or kV according to patient size and/or use of iterat jamshid reconstruction technique. Brain parenchyma as well as the rhodes and white matter differentiation demonstrate to be unremarkable. There is no midline shift and/or mass effect. There is no evidence for acute hemorrhage. Lateral v entricles and cisterns displace normal appearance. No intra or extra axial fluid collections were s een. The calvarium is intact with no evidence for fracture. The visualized portions of the paranasal sinuses demonstrate opacification of the right posterior sphenoid sinus. The mastoid air cells and or bits demonstrate to be clear. Incidentally is noted the presence of a superficial skin/subcutaneous r ight lateral frontal/temporal fat-containing lesion most likely sales representative metals of lipoma. IMPRESSION: No evidence for acute hemorrhage, mass effect or midline shift. Incidentally noted the presence of a superficial skin/subcutaneous right lateral frontal/temporal fat -containing lesion most likely sales representative metals of lipoma. Right sphenoid sinus disease. Electronically signed by: Tahir Morejon MD 03/06/2021 10:50 PM CDT Due to temporary technical issues with the PACS/Fluency reporting system, reports are being signed by the in house radiologists without review as a courtesy to insure prompt reporting. The interpreting radiologist is fully responsible for the content of the report.
--- NOTE | 2021-03-07 22:02 | RAD REPORT ---
EXAM DESCRIPTION: CT - Abdomen Pelvis W Contrast - 03/07/2021 6:41 am CLINICAL HISTORY: 45 years Male Chest pain;SOB diarrhea, nausea and vomiting. COMPARISON: None. TECHNIQUE: Contiguous axial images obtained through the chest during infusion of IV contrast and thr ough the abdomen and pelvis following IV contrast. Reformatted images obtained. MIP reformatted liang ges obtained through the chest. This exam was performed according to our department optimization program which includes automated exp osure control, adjustment of the mA and/or kv according to patient size and/or use of iterative recon struction technique. FINDINGS: The mediastinum appears unremarkable. No pericardial effusion. No evidence for thoracic aortic dissection. The study is suboptimal for evaluation of pulmonary emboli secondary to motion artifact. No large kesha tral pulmonary emboli are identified. The peripheral lower lobe branches are suboptimally evaluated. Mild scarring/atelectasis in the lungs. No consolidating infiltrates or pleural effusions. No pneum othorax. There is a pleural-based nodular density visualized on axial image 111/162 measuring appro ximately 1 cm in diameter. Nodular liver consistent with cirrhosis. There are a couple of tiny low density lesions in the liver which are not characterized. The largest lesion measures approximately 0.4 cm in diameter. The spleen is enlarged measuring approximately 15 cm in length. There are multiple varices in the abd omen and pelvis most pronounced along the lesser curvature of the stomach and around the esophagus. The pancreas appears unremarkable. No adrenal masses. Small nonobstructing right renal calculus. No hydronephrosis or ureteral calculi. Gallstones in the gallbladder. Mild atherosclerotic calcifications. No aneurysmal dilatation of the aorta. No bowel obstruction. The appendix appears unremarkable. No free pelvic fluid. Mild compression fractures at T6, T8 and L5 which appear chronic. Degenerative changes in the spine. IMPRESSION: 1. The study is suboptimal for evaluation of pulmonary emboli secondary to motion joselito fact. No large central pulmonary emboli are identified. The peripheral lower lobe branches are subopt imally evaluated. 2. 10 mm solid pulmonary nodule. Three month follow-up recommended to document resolution or stabil ity. These guidelines do not apply to immunocompromised patients and patients with cancer. Follow u p in patients with significant comorbidities as clinically warranted. For lung cancer screening, adhe re to Lung-RADS guidelines. Reference: Radiology. 2017; 284(1):228-43. 3. Nodular liver consistent with cirrhosis. There are changes from portal hypertension. There are m ultiple varices in the abdomen and pelvis most pronounced along the lesser curvature of the stomach a nd around the esophagus. 4. Cholelithiasis. If there is clinical concern for the possibility of cholecystitis, sonography or nuclear medicine imaging could be obtained to better evaluate. 5. Small nonobstructing right renal calculus. No hydronephrosis or ureteral calculi. Electronically signed by: Jose Perez MD 03/06/2021 11:19 PM CDT Due to temporary technical issues with the PACS/Fluency reporting system, reports are being signed by the in house radiologists without review as a courtesy to insure prompt reporting. The interpreting radiologist is fully responsible for the content of the report.
[2021-03-08 05:58] LABS: Absolute Lymphocytes (CBC) 2.1 K/uL (0.7-4.9); Basophils % 0.7 % (0-1.3); Hematocrit 46.6 % (39.6-49.0); Lymphocytes % 28.9 % (15.3-44.8); MPV 9.4 fL (7.6-11.3); RBC Red Blood Cell Count 4.88 M/uL (4.33-5.43)
[2021-03-08 06:57] LABS: ALT/SGPT 75 U/L (12-78); AST/SGOT 84 U/L (15-37); Albumin 2.2 g/dL (3.4-5.0); Alkaline Phosphatase 112 U/L (45-117); BUN Blood Urea Nitrogen 11 mg/dL (7-18); Bicarbonate 23 mmol/L (21-32); Bilirubin Total 1.3 mg/dL (0.2-1.0); Glucose Level 91 mg/dL (74-106); Magnesium 1.7 mg/dL (1.8-2.4); Protein, Total 6.4 g/dL (6.4-8.2); Sodium Level 139 mmol/L (136-145)
[2021-03-08 07:01] LABS: Creatine Phosphokinase 1104 U/L (39-308)
[2021-03-08] MEDS ORDERED: MAGNESIUM SULFATE 1 gm IVPB 1 GM/100 ML BAG IV ONE (07:12)
[2021-03-08 07:49] LABS: Blood Morphology Comment NOT SEEN (NOT SEEN); Platelet Estimate DECR
[2021-03-08] MEDS: ASPIRIN EC 81 MG TAB PO SCH (08:35)
[2021-03-08] MEDS: levETIRAcetam 500 MG TAB PO SCH (08:35)
[2021-03-08] MEDS ORDERED: NICOTINE 21 MG/PAT TD SCH (09:00)
[2021-03-08] MEDS ORDERED: METOPROLOL TAR 50 MG TAB PO SCH (09:00)
[2021-03-08] MEDS ORDERED: FOLIC ACID 1 MG TABLET PO SCH (09:00)
[2021-03-08] MEDS ORDERED: THIAMINE 200 MG/2 ML INJ IVP SCH (09:00)
[2021-03-08] MEDS: NA CHLORIDE 0.9% 1,000 ML IV SCH (11:38)
--- NOTE | 2021-03-08 12:41 | P.DS ---
Admission Date: 03/06/21 Discharge Date: 03/08/21 Primary Care Provider: none Disposition: ROUTINE DISCHARGE Discharge Condition: GOOD Reason for Admission: AFib RVR Consultations: Cardiology - Dr. Sánchez Neurology - Dr. Bello Procedures: CXR (03/06): No acute abnormalities displayed CTA Chest (03/06): CT Abd/pelvis (03/06): FINDINGS: The mediastinum appears unremarkable. No pericardial effusion. No evidence for thoracic aortic dissection. The study is suboptimal for evaluation of pulmonary emboli secondary to motion artifact. No large central pulmonary emboli are identified. The peripheral lower lobe branches are suboptimally evaluated. Mild scarring/atelectasis in the lungs. No consolidating infiltrates or pleural effusions. No pneumothorax. There is a pleural-based nodular density visualized on axial image 111/162 measuring approximately 1 cm in diameter. Nodular liver consistent with cirrhosis. There are a couple of tiny low density lesions in the liver which are not characterized. The largest lesion measures approximately 0.4 cm in diameter. The spleen is enlarged measuring approximately 15 cm in length. There are multi ple varices in the abdomen and pelvis most pronounced along the lesser curvature of the stomach and around the esophagus. The pancreas appears unremarkable. No adrenal masses. Small nonobstructing right renal calculus. No hydronephrosis or ureteral calculi. Gallstones in the gallbladder. Mild atherosclerotic calcifications. No aneurysmal dilatation of the aorta. No bowel obstruction. The appendix appears unremarkable. No free pelvic fluid. Mild compression fractures at T6, T8 and L5 which appear chronic. Degenerative changes in the spine. IMPRESSION: 1. The study is suboptimal for evaluation of pulmonary emboli secondary to motion artifact. No large central pulmonary emboli are identified. The peripheral lower lobe branches are suboptimally evaluated. 2. 10 mm solid pulmonary nodule. Three month follow-up recommended to document resolution or stability. These guidelines do not apply to immunocompromised patients and patients with cancer. Follow up in patients with significant comorbidities as clinically warranted. For lung cancer screening, adhere to Lung-RADS guidelines. Reference: Radiology. 2017; 284(1):228-43. 3. Nodular liver consistent with cirrhosis. There are changes from portal hypertension. There are multiple varices in the abdomen and pelvis most pronounced along the lesser curvature of the stomach and around the esophagus. 4. Cholelithiasis. If there is clinical concern for the possibility of cholecystitis, sonography or nuclear medicine imaging could be obtained to better evaluate. 5. Small nonobstructing right renal calculus. No hydronephrosis or ureteral calculi. CT Head (03/06): FINDINGS: Multiple transaxial tomograms of the brain were obtained from the base of the skull to the vertex without contrast. 2-D multiplanar reformats and the coronal and sagittal plane were performed and reviewed. This exam was performed according to our departmental dose-optimization protocol, which includes automated exposure control, adjustment of the mA and/or kV according to patient size and/or use of iterative reconstruction technique. Brain parenchyma as well as the rhodes and white matter differentiation demonstrate to be unremarkable. There is no midline shift and/or mass effect. There is no evidence for acute hemorrhage. Lateral ventricles and cisterns displace normal appearance. No intra or extra axial fluid collections were seen. The calvarium is intact with no evidence for fracture. The visualized portions of the paranasal sinuses demonstrate opacification of the right posterior sphenoid sinus. The mastoid air cells and orbits demonstrate to be clear. Incidentally is noted the presence of a superficial skin/subcutaneous right lateral frontal/temporal fat-containing lesion most likely customer care representative of lipoma. IMPRESSION: No evidence for acute hemorrhage, mass effect or midline shift. Incidentally noted the presence of a superficial skin/subcutaneous right lateral frontal/temporal fat-containing lesion most likely customer care representative of lipoma. Right sphenoid sinus disease. Problem List New onset AFib RVR Dehydration elevated CPK secondary to presumed seizure with h/o seizures not on medication Alcoholic cirrhosis of the liver with chronic alcohol abuse 10 mm pulmonary nodule-history of tobacco abuse Positive for amphetamines Brief History of Present Illness: 45-year-old male with history of hypertension, alcoholic cirrhosis of liver, alcohol/tobacco abuse presents emergency department for malaise, fatigue, diarrhea, body aches. Patient reports he has also been having palpitations over the course of the last 2 days. Patient evaluated in the emergency department found to be in AFib RVR at a rate around 150-170 on arrival. Patient given IV Lopressor and p.o. metoprolol in the ER. Rate has improved to around 115 to 120. Labs significant for white blood cell count 14.5 hemoglobin 18 hematocrit 51 platelets 90 to sodium 134 potassium 3.4 carbon dioxide 19 T. bili 1.8 d bili 0.6 AST 117 ALT 109 CPK a 711 patient reports that his last alcoholic beverage was this morning he had 2 beers, patient reports drinking between 6 and 12 beers per day every day. Patient also tested positive for amphetamines but adamantly denies any recreational drug use. Patient reports in the past he was told he may have lung cancer, CT chest abdomen pelvis with contrast was obtained with which demonstrated no PE, 10 mm solid pulmonary nodule recommended 3 months followup, cirrhosis, cholelithiasis. ED wishes to admit for further evaluation and management of AFib RVR. Hospital Course: Patient had improvement of his symptoms. On further discussion, stated he bit his tongue/cheek, and woke up with sore muscles. He has a history of seizures, described as tonic-clonic, and thinks he may have had one while sleeping 2 nights prior to admission. He did have elevated CPK levels and sore muscles throughout his body that would be consistent with a tonic-clonic seizure, likely brought on due to dehydration and alcohol use. He was given IVF and 2 doses of Toradol with relief. Neurology was consulted and recommended use of Keppra given his h/o alcohol abuse / alcoholic cirrhosis. He was noted to be in rapid afib with RVR with palpitations. His rate was controlled with metoprolol, requiring titration up to 100mg BID. Cardiology was consulted and agreed. 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 He was advised to take a daily aspirin. Patient was given [facility] card for prescriptions. He is to f/u with his PCP in 3-5 days. Counselled extensively on alcohol cessation. Plans on cutting back with eventual goal of quitting. Vital Signs/Physical Exam: Temp Pulse Resp BP Pulse Ox 97.9 F 130 H 20 150/87 H 97 03/08/21 08:00 03/08/21 08:36 03/08/21 08:00 03/08/21 08:36 03/08/21 08:00 General: Alert, In no apparent distress, Oriented x3 HEENT: PERRLA, Other (3 soft tissue densities on forehead/face), EOMI, Sclerae nonicteric Neck: Supple Respiratory: Clear to auscultation bilaterally, Normal air movement Cardiovascular: No edema, No murmurs, Irregular heart rate/rhythm (HR: 90s) Gastrointestinal: Soft and benign, Non-distended, No tenderness Musculoskeletal: No swelling, No erythema Integumentary: No rashes, No breakdown, No significant lesion Neurological: Normal speech, Normal strength at 5/5 x4 extr, Normal affect Laboratory Data at Discharge: WBC 7.40 K/uL (4.3-10.9) D 03/08/21 05:31 Hgb 15.8 g/dL (13.6-17.9) 03/08/21 05:31 Hct 46.6 % (39.6-49.0) 03/08/21 05:31 Plt Count 63 K/uL (152-406) L 03/08/21 05:31 PT 13.9 SECONDS (9.5-12.5) H 03/06/21 20:53 INR 1.21 03/06/21 20:53 APTT 33.8 SECONDS (24.3-36.9) 03/06/21 20:53 Sodium 139 mmol/L (136-145) 03/08/21 05:31 Potassium 4.0 mmol/L (3.5-5.1) 03/08/21 05:31 BUN 11 mg/dL (7-18) 03/08/21 05:31 Creatinine 0.51 mg/dL (0.55-1.3) L 03/08/21 05:31 Glucose 91 mg/dL (74-106) 03/08/21 05:31 Magnesium 1.7 mg/dL (1.8-2.4) L 03/08/21 05:31 Total Bilirubin 1.3 mg/dL (0.2-1.0) H 03/08/21 05:31 AST 84 U/L (15-37) H 03/08/21 05:31 ALT 75 U/L (12-78) 03/08/21 05:31 Alkaline Phosphatase 112 U/L (45-117) 03/08/21 05:31 Triglycerides 97 mg/dL (<150) 03/07/21 05:50 Cholesterol 101 mg/dL (<200) 03/07/21 05:50 HDL Cholesterol 44 mg/dL (40-60) 03/07/21 05:50 Cholesterol/HDL Ratio 2.30 03/07/21 05:50 Amylase 59 U/L (25-115) 03/06/21 20:53 Lipase 94 U/L (73-393) 03/06/21 20:53 Home Medications: Aspirin [Aspirin EC 81 MG] 81 mg PO DAILY 30 Days #30 tablet. 03/08/21 Metoprolol Tartrate [Lopressor] 100 mg PO BID 30 Days #60 tablet 03/08/21 levETIRAcetam [Keppra*] 500 mg PO BID 30 Days #60 tab 03/08/21 New Medications: Aspirin [Aspirin EC 81 MG] 81 mg PO DAILY 30 Days #30 tablet. levETIRAcetam [Keppra*] 500 mg PO BID 30 Days #60 tab Metoprolol Tartrate [Lopressor] 100 mg PO BID 30 Days #60 tablet Physician Discharge Instructions: You were found to have atrial fibrillation (fast, irregular heart rate/rhythm). The rate improved with addition of metoprolol. You are discharged with this new medication to help keep your heart rate down. Please take a daily baby aspirin (81mg) to help with the risk of blood clot due to atrial fibrillation, as a stronger blood thinner is too expensive. Your other symptoms are related to a seizure you likely had 2 nights ago - explaining your soreness, headache, and elevated muscle breakdown blood test. You are discharged with Keppra 500mg twice a day. Please reduce and eventually quit drinking alcohol. No driving or operating heavy machinery for at least 3 months, until cleared by your PCP or neurology. Please follow up with primary care provider. Prescriptions have been sent to [facility]. Please take as directed. Recommend staying home and not working / doing strenuous activity for the next ~3 days. Diet: AHA Activity: Ad anil Followup: NONE,NONE [Primary Care Provider] - Time spent managing pt's care (in minutes): 35
[2021-03-08 12:53] VITALS: BP 121/77; TEMP 98.1
--- NOTE | 2021-03-09 16:13 | EKG ---
Test Date: 2021-03-06 Test Time: 20:45:32 Sign Writer Hand: PENG MEASUREMENT RESULTS: Intervals: Rate: 154 VA: QRSD: 92 QT: 326 QTc: 522 [place]: P: VA: QRS: 23 T: 159 INTERPRETIVE STATEMENTS: Atrial fibrillation with rapid ventricular response Minimal voltage criteria for LVH, may be normal variant T wave abnormality, consider lateral ischemia or digitalis effect Abnormal ECG No previous ECG available for comparison Electronically Signed On 03-09-21 16:05:31 CDT by Dharmesh Sánchez
--- NOTE | 2021-03-20 11:05 | CON ---
Date of Consultation: 03/07/2021 Reason For Consultation: Atrial fibrillation. History Of Present Illness: Mr. Leigh is a 45-year-old male with history of hypertension, alcoholic cirrhosis, alcohol and tobacco abuse, who came in with diarrhea, body aches, fatigue and m alaise, was noted to be in atrial fibrillation at a rate of 152-170, was given IV Lopressor and p.o. Lopressor in the emergency room and his heart rate has improved, but he remained in atrial fibrillati on. The patient tested positive for amphetamine, but he denied any drug use. He denied any chest pa in. He denied any nausea, vomiting, diaphoresis, PND, orthopnea, pedal edema, or syncope. Has had p alpitations for 2 days. Past Medical History: As stated above. Allergies: NONE. Review of Systems: Negative. Social History: Positive for tobacco and drug use. No alcohol use. Family History: Noncontributory. Medications: At home are none. Physical Examination: Vital Signs: He was in atrial fibrillation at a rate of 78. Afebrile. HEENT: Negative. Neck: Supple. No bruit. Chest: Clear to auscultation and percussion. Cardiac: Revealed a regular rhythm and rate without any murmurs, gallops, or rubs. Abdomen: Benign. Extremities: Revealed no clubbing, cyanosis, or edema. Diagnostic Data: EKG showed atrial fibrillation. Magnesium was 1.4. His creatine kinase was 1104 w ith negative troponin. He had elevated liver function enzymes. His CPK-MB was 3.7. Urinalysis was positive for amphetamine. Impression And Plan: New onset atrial fibrillation, possibly related to alcoholic cardiomyopathy. A lso could be related to rhabdomyolysis and could be related to the low magnesium. I will supplement his magnesium. I would hydrate him vigorously because of his rhabdomyolysis. He needs to get an ech ocardiogram to rule out alcoholic cardiomyopathy. I think he should be on metoprolol rn long term care and a baby aspirin long-term. I think he is a good candidate for anticoagulation with a drug use. His bl ood pressure is well controlled. We will continue to follow him on an as-needed basis. CARMENCITA/GABE Voice ID: [id number] Report ID: [id number]
== END 2021-03-08 13:40 | disposition home or self-care (01) | DRG 310 ==
LOC: ER 19:29 → 2ND 23:34 → OBSVTOIN 03-07 09:04
PROVIDERS: ADMIT Hospitalist; ATTEND Hospitalist
DX: I48.91 Unspecified atrial fibrillation (principal); E86.0 Dehydration; R56.9 Unspecified convulsions; K70.30 Alcoholic cirrhosis of liver without ascites; R91.1 Solitary pulmonary nodule; F15.90 Other stimulant use, unspecified, uncomplicated; R79.89 Other specified abnormal findings of blood chemistry; Z87.891 Personal history of nicotine dependence; Z20.822 Contact with and (suspected) exposure to COVID-19
CPT/HCPCS: 36415; 70450; 71045; 71275; 74177; 80048; 80053; 80061; 80076; 80307; 81003; 81015; 82150; 82550; 82553; 83605; 83690; 83735; 84145; 84439; 84443; 84484; 85025; 85610; 85730; 87040; 87804; 93005; 96361; 96374; 96375; 99285; G0378; J1953; J2405; J3411; J3475; J7030; Q9967; U0003

== ENCOUNTER 2021-08-16 22:47 | Emergency (ER) | payer SELFPAY ==
--- OUTSIDE RECORDS SUMMARY | 2021-08-16 22:50 | XMS REPORT | Continuity of Care Document ---
:1975 Author Organization [facility] Address [address] [place] [address] Care Team Providers Name Role Phone MARIMAR_Tiffany Attending Clinician Unavailable MARICARMEN, Nelson Attending Clinician Unavailable BEVERLY Attending Clinician Unavailable ADONIS Attending Clinician Unavailable KODILLAN_Tiffany Admitting Clinician Unavailable MARICARMEN, Nelson Admitting Clinician Unavailable PAUL Admitting Clinician Unavailable ADONIS Admitting Clinician Unavailable Payers Payer Name Policy Type Policy Number Effective Date Expiration Date S ource Problems This patient has no known problems. Allergies, Adverse Reactions, Alerts This patient has no known allergies or adverse reactions. Medications This patient has no known medications. Procedures This patient has no known procedures. Encounters Start End Encounter Admission Attending Care Care Encounter Source Date/Time Date/Time Type Type Clinicians Facility Department ID 2021-04-01 2021-04-01 Outpatient MARIMAR_T [facility] [id number] -2020 [place] 04:17:00 04:17:00 [id number] [facility] 2021-04-01 2021-04-01 Outpatient MARIMAR_T [facility] [id number] -2020 [place] 04:17:00 04:17:00 [id number] [facility] Results Test Description Test Time Test Comments Results Result Comments Source ALCOHOL, SERUM 2020-01-22 08:58:00 Test Item Value Reference Range Interpretation Comme nts Alcohol % (test code = ALCPC) 0.06 % 0.00-0.00 H Ethanol % 0.00 - 0.10 Sub-clinical 0.11 - 0 .20 Emotional Instability 0.21 - 0.30 Confusion 0.31 - 0.40 Stupor 0.41 - 0.5 0 Coma >.50 Fatal ALCOHOL, [id number] 05:29:00 Test Item Value Reference Range Interpretation Comments Alcohol % (test code = 0.12 % 0.00-0.00 H Jae ol % 0.00 - 0.10 ALCPC) Sub-clinical 0.11 - 0.20 Emotion al Instability 0.21 - 0.30 Confusion 0.31 - 0.40 Stupor 0.41 - 0.50 Co ma >.50 Fa megan DRUG SCREEN [id number] 01:27:00 Test Item Value Reference Range Interpretation Comments PH (test code = 5.5 UPH) Specific [place] 1.025 (test code = USPGR) FT (test [...] of Ab use ran on the Siemens Suffern analyzer listed there in: Ampheta mines < [...] = Negative THC) (qualifier value) URINALYSIS WITH [id number] 01:17:00 Test Item Value Reference Range Interpretation Comments Color (test code = UCOLR) Yellow Clarity (test code = Clear UCLAR) Glucose (test code = NEGATIVE NEGATIVE N UGLUC) Bilirubin (test code = Small NEGATIVE A UBILI) Ketones (test code = NEGATIVE NEGATIVE N UKET) Specific [place] (test 1.025 1.005-1.030 A code = USPGR) [...] Rare Fine Granular Cast CBC WITH AUTO [id number] 01:16:00 Test Item Value Reference Range Interpretation [...] (test code = TSH) 1.50 mIU/L 0.47-4.68 [id number] 01:07:00 Test Item Value Reference Range Interpretation [...] 4 - SerumAlbu min)] EGFR if >60 Martiniquais (test code mL/min/1.73m\\ = EGFRAA) S\\2 EGFR if Non- >60 Estimate d Glomerular Martiniquais (test code mL/min/1.73m\\ Filtrat ion Rate (eGFR) [...] management of c hronic kidney failure. ALCOHOL, [id number] 00:58:00 Test Item Value Reference Range Interpretation [...] code = ACET) <2 ug/ml 10-30 L [id number] 00:58:00 Test Item Value Reference Range Interpretation Comments CPK (test code = CPK) 130 U/L 30-135 SALICYLATES (Aspirin)2019-10-18 21:07:00 Test Item Value Reference Range Interpretation Comments Salicylate (test code <1.7 mg/dl 0.0-30.0 N Salicy lates Reference = SALI) Ranges: Therap eutic 15 - 30 mg/dl Toxicity >30 mg/dl Leth al >70 mg/dl ALCOHOL, [id number] 20:49:00 Test Item Value Reference Range Interpretation Comments Alcohol % (test code = 0 % 0.00-0.00 N Jae ol % 0.00 - 0.10 ALCPC) Sub-clinical 0.11 - 0.20 Emotional Instability 0.21 - 0.30 Confusion 0.31 - 0.40 Stupor 0.41 - 0.50 Coma >.50 Fatal ACETAMINOPHEN (Tyenol)2019-10-18 20:49:00 Test Item Value Reference Range Interpretation Comments Acetaminophen (test code = ACET) <2 ug/ml 10-25 L [id number] 20:49:00 Test Item Value Reference Range Interpretation [...] 4 - SerumAlbu min)] EGFR if >60 [place]iquais (test code mL/min/1.73m\\ = EGFRAA) S\\2 EGFR if Non- >60 Estimate d Glomerular Martiniquais (test code mL/min/1.73m\\ Filtrat ion Rate (eGFR) [...] c hronic kidney failure. CBC WITH AUTO [id number] 20:26:00 Test Item Value Reference Range Interpretation [...] = 0.4 % 0.0-0.4 IG%) DRUG SCREEN [id number] 20:08:00 Test Item Value Reference Range Interpretation Comments PH (test code = UPH) 6.0 Specific [place] >=1.030 (test code = USPGR) Amphetamines (test [...] Drugs o f Abuse ran on Siemens Suffern analyzer listed there in: Amphetamines < 1000 [...] = THC) Negative (qualifier value) URINALYSIS WITH [id number] 20:06:00 Test Item Value Reference Range Interpretation Comments Color (test code = UCOLR) [place] Clarity (test code = Sl Cloudy UCLAR) Glucose (test code = 100 NEGATIVE A UGLUC) Bilirubin (test code = Small NEGATIVE A UBILI) Ketones (test code = NEGATIVE NEGATIVE N UKET) Specific [place] (test >=1.030 1.005-1.030 A code = USPGR) [...] Seen A = URCRYS) Oxalate DRUG SCREEN [id number] 04:26:00 Test Item Value Reference Range Interpretation Comments PH (test code = 6.0 UPH) Specific [place] 1.010 (test code = USPGR) Amphetamines (test [...] o f Abuse ran on e Siemens Suffern analyzer listed there in: Ampheta mines < [...] Results equal t o or greater than e above cut-off v alues = Presumptive Positive. Confirmation of Presumptive Pos itive results are ruddy ilable upon request. Cannabinoids, THC Positive (test code = THC) URINALYSIS WITH [id number] 04:17:00 Test Item Value Reference Range Interpretation Comments Color (test code = UCOLR) Yellow Clarity (test code = UCLAR) Clear Glucose (test code = UGLUC) NEGATIVE NEGATIVE N Bilirubin (test code = UBILI) NEGATIVE NEGATIVE N Ketones (test code = UKET) NEGATIVE NEGATIVE N Specific [place] (test code = 1.010 1.005-1.030 A USPGR) [...] UBACT) None seen None Seen,Trace A TROPONIN-I [id number] 03:25:00 Test Item Value Reference Range Interpretation Comments Troponin-I (test <0.015 ng/ml 0.000-0.034 N [address] URL code = TROP) is 0.045 ng/mL for the Siemens Suffern T roponin I. The Joint Euro pean Society of Cardiology/[facility] College of Card iology (ESC/ACC) and t [facility] of Clinical [facility] Standards of La boratory Practices (NACB ) [...] clini amos event. XR CHEST AP/PA 1 [id number] 03:24:46EXAMINATION: XR CHEST AP/PA 1 VIEWINDICATION: Dyspnea.[id number]: [...] = ACET) <2 ug/ml 10-25 L ALCOHOL, [id number] 03:21:00 Test Item Value Reference Range Interpretation Comments Alcohol % (test code = 0.07 % 0.00-0.00 H Jae ol % 0.00 - 0.10 ALCPC) Sub-clinical 0.11 - 0.20 Emotion al Instability 0.21 - 0.30 Confusion 0.31 - 0.40 Stupor 0.41 - 0.50 Co ma >.50 Fa megan [id number] 03:12:00 Test Item Value Reference Range Interpretation [...] 4 - SerumAlbu min)] EGFR if >60 Martiniquais (test code mL/min/1.73m\\ = EGFRAA) S\\2 EGFR if Non- >60 Estimate d Glomerular Martiniquais (test code mL/min/1.73m\\ Filtrat ion Rate (eGFR) [...] and management of c hronic kidney failure. [id number] 03:12:00 Test Item Value Reference Range Interpretation Comments Lipase (test code = LIPA) 213 U/L 8-223 SALICYLATES (Aspirin)2019-10-05 03:09:00 Test Item Value Reference Range Interpretation Comments Salicylate (test code <1.7 mg/dl 0.0-30.0 N Salicy lates Reference = SALI) Ranges: Therap eutic 15 - 30 mg/dl Toxicity >30 mg/dl Leth al >70 mg/dl [id number] 02:58:00 Test Item Value Reference Range Interpretation Comments aPTT (test code = PTT) 27.4 seconds 25.3-35.7 PT AND [id number] 02:58:00 Test Item Value Reference Range Interpretation [...] 2. 5 - 3.5 CBC WITH AUTO [id number] 02:35:00 Test Item Value Reference Range Interpretation [...]
[2021-08-16 23:21] LABS: Absolute Lymphocytes (CBC) 1.5 K/uL (0.7-4.9); Basophils % 0.8 % (0-1.3); Hematocrit 47.7 % (39.6-49.0); Lymphocytes % 29.6 % (15.3-44.8); MPV 8.2 fL (7.6-11.3); RBC Red Blood Cell Count 5.18 M/uL (4.33-5.43)
[2021-08-16 23:22] LABS: Protime INR 1.2
[2021-08-16 23:45] LABS: Blood Morphology Comment NOT SEEN (NOT SEEN); Platelet Estimate DECR; White Blood Cell Scan OK (OK)
[2021-08-16 23:55] LABS: SARS-COV-2 RT PCR NEGATIVE (NEGATIVE)
[2021-08-17 00:08] LABS: ALT/SGPT 87 U/L (12-78); AST/SGOT 83 U/L (15-37); Albumin 2.9 g/dL (3.4-5.0); Alkaline Phosphatase 135 U/L (45-117); BUN Blood Urea Nitrogen 12 mg/dL (7-18); Bicarbonate 24 mmol/L (21-32); Bilirubin Direct 0.6 mg/dL (0-0.2); Creatine Phosphokinase 85 U/L (39-308); Glucose Level 106 mg/dL (74-106); Magnesium 1.7 mg/dL (1.8-2.4); NT PRO-BNP 27 pg/mL (<125); Potassium 3.4 mmol/L (3.5-5.1); Protein, Total 7.8 g/dL (6.4-8.2); Sodium Level 137 mmol/L (136-145); Troponin (Emerg Dept Use Only) < 0.02 ng/mL (0.0-0.045)
[2021-08-17 00:18] LABS: Urine Blood Trace-intact (Negative); Urine Glucose Negative (Negative); Urine Protein 2+ (Negative); Urine Specific Gravity >=1.030 (1.005-1.030); Urine pH 6.5 (5.0-7.0)
[2021-08-17 01:22] LABS: Barbiturates NEGATIVE (NEGATIVE); Benzodiazepines NEGATIVE (NEGATIVE); Cocaine NEGATIVE (NEGATIVE); METHAMPHETAM POSITIVE (NEGATIVE); Methadone NEGATIVE (NEGATIVE); Opiates NEGATIVE (NEGATIVE); Phencyclidine NEGATIVE (NEGATIVE); THC Cannibis NEGATIVE (NEGATIVE)
[2021-08-17] MEDS ORDERED: CEFTRIAXONE 1000 MG/VIAL ONE (02:04)
--- NOTE | 2021-08-17 04:43 | EDPHYS ---
Physician Documentation [facility] Name: Alonso Leigh Age: 46 yrs Sex: Male : 1975 Arrival Date: 08/16/2021 Time: 22:53 Bed 8 Private MD: ED Physician Kevin Malcolm HPI: 08/16 23:14 This 46 yrs old Male presents to ER via EMS with complaints of Palpitations. Suicidal mh7 ideation.. 23:14 The patient presents with a history of heart skipping beats. Context: The symptoms mh7 occur at rest. Onset: The symptoms/episode began/occurred this morning, today. Duration: The patient or guardian reports multiple episodes, that are intermittent, that wax and wane, with no pattern. Modifying factors: The symptoms are aggravated by nothing. The symptoms are alleviated by nothing. Associated signs and symptoms: Pertinent positives: SOB, Pertinent negatives: anxiety, chest pain, cough, fever, lightheadedness, nausea, syncope, near-syncope, unusual stressors, vertigo, vomiting. Severity of symptoms: At their worst the symptoms were moderate today, in the emergency department the symptoms have improved moderately. Patient states that he called EMS due to feeling that his heart was skipping beats and shortness of breath. He states he has had similar episodes in the past but this time it started this morning. Upon EMS questioning, patient admitted to having some intermittent suicidal ideation that has been going on for several months. He states this mostly occurs when he drinks alcohol. He also admits to methamphetamine use with last usage today. He denies any chest pain, fever, cough, abdominal pain, nausea, vomiting, dizziness, numbness/tingling, or weakness. He denies any homicidal ideation. He denies any auditory or visual hallucinations. He notes that he was placed on medication for depression in the past but has not taken in at least 6 months.. Historical: - Allergies: 23:02 No Known Allergies; as6 - Home Meds: 23:02 None [Active]; as6 - PMHx: 23:02 Hypertensive disorder; Cirrhosis of liver; Chronic obstructive lung disease; Seizure; as6 Depressive disorder; - PSHx: 23:02 herina; r ankle; as6 - Immunization history:: Adult Immunizations not up to date. - Social history:: Smoking status: Patient reports the use of cigarette tobacco products, smokes one pack cigarettes per day. Patient uses alcohol, on a daily basis. street drugs, Methamphetamine (Meth). ROS: 23:14 Constitutional: Negative for fever, chills, and weight loss, Eyes: Negative for injury, mh7 pain, redness, and discharge, ENT: Negative for injury, pain, and discharge, Neck: Negative for injury, pain, and swelling, Abdomen/GI: Negative for abdominal pain, nausea, vomiting, diarrhea, and constipation, Back: Negative for injury and pain, : Negative for injury, bleeding, discharge, and swelling, MS/Extremity: Negative for injury and deformity, Skin: Negative for injury, rash, and discoloration, Neuro: Negative for headache, weakness, numbness, tingling, and seizure. 23:14 Allergy/Immunology: Negative for hives, rash, and allergies, Endocrine: Negative for neck swelling, polydipsia, polyuria, polyphagia, and marked weight changes, Hematologic/Lymphatic: Negative for swollen nodes, abnormal bleeding, and unusual bruising. 23:14 Psych: Positive for alcohol dependence, suicidal ideation. Exam: 23:14 Constitutional: This is a well developed, well nourished patient who is awake, alert, mh7 and in no acute distress. Head/Face: Normocephalic, atraumatic. Eyes: Pupils equal round and reactive to light, extra-ocular motions intact. Lids and lashes normal. Conjunctiva and sclera are non-icteric and not injected. Cornea within normal limits. Periorbital areas with no swelling, redness, or edema. Neck: Trachea midline, no thyromegaly or masses palpated, and no cervical lymphadenopathy. Supple, full range of motion without nuchal rigidity, or vertebral point tenderness. No Meningismus. Chest/axilla: Normal chest wall appearance and motion. Nontender with no deformity. No lesions are appreciated. Cardiovascular: Regular rate and rhythm with a normal S1 and S2. No gallops, murmurs, or rubs. Normal PMI, no JVD. No pulse deficits. Respiratory: Lungs have equal breath sounds bilaterally, clear to auscultation and percussion. No rales, rhonchi or wheezes noted. No increased work of breathing, no retractions or nasal flaring. Abdomen/GI: Soft, non-tender, with normal bowel sounds. No distension or tympany. No guarding or rebound. No evidence of tenderness throughout. Back: No spinal tenderness. No costovertebral tenderness. Full range of motion. Skin: Warm, dry with normal turgor. Normal color with no rashes, no lesions, and no evidence of cellulitis. MS/ Extremity: Pulses equal, no cyanosis. Neurovascular intact. Full, normal range of motion. Neuro: Awake and alert, GCS 15, oriented to person, place, time, and situation. Cranial nerves II-XII grossly intact. Motor strength 5/5 in all extremities. Sensory grossly intact. Cerebellar exam normal. Normal gait. 23:14 Psych: Behavior/mood is cooperative, Affect is calm, Oriented to person, place, time, mh7 Patient having thoughts of suicide. Plan for suicide is Plan to hang himself Judgement / Insight is normal. Memory is normal. Delusions/hallucinations are not present. 08/17 08:18 ECG was reviewed by the Attending Physician. [facility] Vital Signs: 08/16 22:53 BP 169 / 115; Pulse 87; Resp 18 S; Temp 97.8(O); Pulse Ox 98% on R/A; Weight 68.04 kg as6 (R); Height 6 ft. (182.88 cm) (R); Pain 9/10; 23:57 BP 149 / 98; Pulse 67; Resp 18; Pulse Ox 98% on R/A; oe 08/17 07:01 BP 137 / 86; Pulse 75; Resp 18; Pulse Ox 97% on R/A; oe 08/16 22:53 Body Mass Index 20.34 (68.04 kg, 182.88 cm) as6 MDM: 04:38 Differential diagnosis: arrythmia, dehydration, stress disorder, Depression, suicidal mh7 ideation. Data reviewed: vital signs, nurses notes, EMS record, old medical records, lab test result(s), cardiac enzymes, CBC, drug level(s), acetaminophen, alcohol, salicylate, electrolytes, urinalysis, urine drug screen, EKG, radiologic studies, plain films. Data interpreted: Pulse oximetry: on room air is 98 %. Interpretation: normal. Counseling: I had a detailed discussion with the patient and/or guardian regarding: the historical points, exam findings, and any diagnostic results supporting the discharge/admit diagnosis, the presence of at least one elevated blood pressure reading (>120/80) during this emergency department visit, lab results, radiology results, the need to transfer to another facility, [facility] does not immediately have the required specialist. Response to treatment: the patient's symptoms have markedly improved after treatment. ED course: Feels well, no acute distress, vital signs stable, no focal neurological deficits. [facility] spoke the patient who acknowledged that he is still feeling suicidal with a plan to hang himself. He was recommended for inpatient treatment for depression and suicidal ideation. He is medically cleared from other complaints at time of presentation.. 04:42 Patient medically screened. [facility] 08/16 22:57 Order name: Basic Metabolic Panel; Complete Time: 01:44 [facility] 08/16 22:57 Order name: CBC with Diff; Complete Time: 23:46 [facility] 08/16 22:57 Order name: LFT's; Complete Time: 01:44 [facility] 08/16 22:57 Order name: Magnesium; Complete Time: 01:44 [facility] 08/16 22:57 Order name: NT PRO-BNP; Complete Time: :44 [facility] 08/16 22:57 Order name: PT-INR; Complete Time: 02:17 [facility] 08/16 22:57 Order name: Troponin (emerg Dept Use Only); Complete Time: :44 [facility] 08/16 22:57 Order name: Acetaminophen; Complete Time: :44 [facility] 08/16 22:57 Order name: Salicylate; Complete Time: 23:46 [facility] 08/16 22:57 Order name: UDS; Complete Time: 01:44 [facility] 08/16 22:57 Order name: ETOH Level; Complete Time: 23:46 [facility] 08/16 22:59 Order name: COVID-19/FLU A+B (Document "Date of Onset" if Symptomatic); Complete Time: [facility] 01:44 08/16 22:57 Order name: XRAY Chest (1 view); Complete Time: 14:32 [facility] 08/16 23:16 Order name: Creatine Phosphokinase; Complete Time: 01:44 [facility] 08/16 23:16 Order name: Thyroid Stimulating Hormone; Complete Time: 01:44 [facility] 08/16 23:22 Order name: CBC Smear Scan; Complete Time: 23:46 [facility] 08/17 00:16 Order name: Urine Dipstick-Ancillary; Complete Time: 01:44 EDMS 08/17 01:45 Order name: Urine Culture [facility] 08/17 01:57 Order name: D-Dimer; Complete Time: 02:17 EDMS 08/17 02:19 Order name: Troponin (emerg Dept Use Only) [facility] 08/17 02:19 Order name: Troponin (Emerg Dept Use Only); Complete Time: 03:30 EDMS 08/17 07:27 Order name: AMMONIA gabriella 08/17 07:27 Order name: Ammonia; Complete Time: 14:32 EDMS 08/16 22:57 Order name: EKG; Complete Time: 22:58 [facility] 08/16 22:57 Order name: EKG - Nurse/Tech; Complete Time: 23:12 [facility] 08/16 22:57 Order name: IV Saline Lock; Complete Time: 23:12 [facility] 08/16 22:57 Order name: Labs collected and sent; Complete Time: 23:12 [facility] 08/16 22:57 Order name: O2 Per Protocol; Complete Time: 23:12 [facility] 08/16 22:57 Order name: O2 Sat Monitoring; Complete Time: 23:12 [facility] 08/17 07:10 Order name: Diet Finger Food; Complete Time: 07:11 08/17 10:11 Order name: Diet Finger Food; Complete Time: 10:11 [facility] 08/17 10:42 Order name: Diet Finger Food; Complete Time: 10:42 3 EC:18 Rate is 85 beats/min. Rhythm is regular. QRS [place] is Normal. [place] interval is normal. QRS gabriella interval is normal. QT interval is normal. No Q waves. T waves are Normal. No ST changes noted. Clinical impression: NSR w/ Non-specific ST/T Changes, LVH, and No evidence of ischemia. Interpreted by me. Reviewed by me. Administered Medications: 02:06 Drug: Rocephin (cefTRIAXone) 1 grams Route: IV; Rate: per protocol; Site: right sm5 antecubital; 07:00 Follow up: Response: No adverse reaction; IV Status: Completed infusion jd3 08:06 Drug: Magnesium Sulfate 1 grams Route: IVPB; Infused Over: 1 hrs; Site: left hand; jd3 09:00 Follow up: Response: No adverse reaction; IV Status: Completed infusion jd3 08:06 Drug: Potassium Effervescent Tablet 25 mEq Route: PO; jd3 09:00 Follow up: Response: No adverse reaction jd3 14:39 CANCELLED (Physician Discretion): Lactulose 30 grams 45 ml PO once jd3 15:08 Drug: Nicoderm CQ Patch 21 mg/24 hr 1 patches Route: Transdermal; Site: affected area; jd3 15:42 Follow up: Response: No adverse reaction jd3 15:09 Drug: Ativan (LORazepam) 1 mg Route: IVP; Site: left hand; jd3 15:42 Follow up: Response: No adverse reaction jd3 15:09 Drug: Thiamine 100 mg Route: IV; Rate: bolus; Site: left hand; jd3 15:42 Follow up: Response: No adverse reaction; IV Status: Completed infusion jd3 15:42 Not Given (Physician Discretion): Ativan (LORazepam) 1 mg IVP once jd3 Disposition Summary: 08/17/21 04:42 Transfer Ordered Transfer Location: [facility] Facility [facility] Reason: Higher level of care 7 Condition: Stable [facility] Problem: an acute exacerbation 7 Symptoms: have improved mh7 Accepting Physician: Psychiatry(08/17/21 15:46) jd3 Diagnosis - Depression with suicidal ideation mh7 - Methamphetamine abuse mh7 - Unspecified cirrhosis of liver gabriella - Alcohol abuse gabriella - COPD/ Chronic obstructive pulmonary disease, unspecified gabriella Forms: - Medication Reconciliation Form mh7 - SBAR form 7 Signatures: Dispatcher [employer] EDMS Kevin Malcolm MD MD cha Davies, Jonathon, RN RN jd3 Rory Matt MD MD 7 Anselmo Lieberman RN RN as6 Yumi Love RN RN sm5 Corrections: (The following items were deleted from the chart) 08/16 23:12 22:57 Cardiac monitoring ordered. [facility] as6 23:15 23:00 THYROID STIMULAT HORMONE+C.LAB.BRZ ordered. EDMS EDMS 23:15 23:01 CREATINE PHOSPHOKINASE+C.LAB.BRZ ordered. EDMS EDMS 08/17 01:56 01:45 D-DIMER+COAG.LAB.BRZ ordered. EDMS EDMS 14:39 14:35 Lactulose 30 grams 45 ml PO once ordered. gabriella jsinan 14:42 04:42 Dr. Psychiatry [address] 14:42 14:42 Dr. Psychiatry [facility] 15:46 14:42 Dr. Psychiatry [facility] jd3
--- NOTE | 2021-08-17 04:43 | ER ---
Nurse's Notes [facility] Name: Alonso Leigh Age: 46 yrs Sex: Male : 1975 Arrival Date: 08/16/2021 Time: 22:53 Bed 8 Private MD: Diagnosis: Depression with suicidal ideation;Methamphetamine abuse;Unspecified cirrhosis of liver;Alcohol abuse;COPD/ Chronic obstructive pulmonary disease, unspecified Presentation: 08/16 22:53 Chief complaint: EMS states: called out for cirrhosis, on seen pt was depressed and was as6 positive for SI. Coronavirus screen: At this time, the client does not indicate any symptoms associated with coronavirus-19. Ebola Screen: No symptoms or risks identified at this time. Initial Sepsis Screen: Does the patient meet any 2 criteria? No. Patient's initial sepsis screen is negative. Does the patient have a suspected source of infection? No. Patient's initial sepsis screen is negative. Risk Assessment: Do you want to hurt yourself or someone else? Patient reports desire/thoughts of hurting themselves or someone else. Provider notified. Onset of symptoms is unknown. Care prior to arrival: IV initiated. 18 GA, in the left hand. 22:53 Method Of Arrival: EMS: [facility] as6 22:53 Acuity: SHAWN 2 as6 Triage Assessment: 23:12 General: Appears in no apparent distress. Behavior is calm, cooperative. as6 Historical: - Allergies: 23:02 No Known Allergies; as6 - Home Meds: 23:02 None [Active]; as6 - PMHx: 23:02 Hypertensive disorder; Cirrhosis of liver; Chronic obstructive lung disease; Seizure; as6 Depressive disorder; - PSHx: 23:02 herina; r ankle; as6 - Immunization history:: Adult Immunizations not up to date. - Social history:: Smoking status: Patient reports the use of cigarette tobacco products, smokes one pack cigarettes per day. Patient uses alcohol, on a daily basis. street drugs, Methamphetamine (Meth). Screenin:10 Abuse screen: Denies threats or abuse. Nutritional screening: No deficits noted. as6 Tuberculosis screening: No symptoms or risk factors identified. Fall Risk None identified. Assessment: 23:05 General: pt states he has a lot going on his his personal life, his left him, he as6 has no family support, he has no home, he sleeps on different friends couches every night, pt states a few weeks ago he attempted to hang himself from a tree with a garden hose, he talked on the phone with a friend for a few hours and decided not to kill himself, pt has a history of depression, pt also states he has lost his appetite . Pain: Complains of pain in "whole body". Neuro: Level of Consciousness is awake, alert, obeys commands, Oriented to person, place, time, situation. Cardiovascular: Capillary refill < 3 seconds Patient's skin is warm and dry. Respiratory: Airway is patent Trachea midline Respiratory effort is even, unlabored, Respiratory pattern is regular, symmetrical. Derm: Skin is intact, is healthy with good turgor. 08/17 00:05 General: Appears in no apparent distress. Behavior is calm, cooperative, appropriate tw5 for age. 00:30 General: pt admits to "drinking as much beer as I can get a hold of" . as6 02:47 Reassessment: Patient appears in no apparent distress at this time. No changes from tw5 previously documented assessment. 07:30 General: Appears in no apparent distress. comfortable, Behavior is calm, cooperative, jd3 appropriate for age, Reports feeling depressed. Pain: Denies pain. Neuro: Level of Consciousness is awake, alert, obeys commands, Oriented to person, place, time, situation. Cardiovascular: Capillary refill < 3 seconds Patient's skin is warm and dry. Respiratory: Airway is patent Respiratory effort is even, unlabored, Respiratory pattern is regular, symmetrical, Denies cough, shortness of breath. GI: No signs and/or symptoms were reported involving the gastrointestinal system. : No signs and/or symptoms were reported regarding the genitourinary system. EENT: No signs and/or symptoms were reported regarding the EENT system. Derm: Skin is intact, Skin is dry, Skin is normal, Skin temperature is warm. Musculoskeletal: No signs and/or symptoms reported regarding the musculoskeletal system. 08:30 Reassessment: No changes from previously documented assessment. Patient and/or family jd3 updated on plan of care and expected duration. Pain level reassessed. Patient is alert, oriented x 3, equal unlabored respirations, skin warm/dry/pink. pt eating meal. 09:30 Reassessment: No changes from previously documented assessment. Patient and/or family jd3 updated on plan of care and expected duration. Pain level reassessed. Patient is alert, oriented x 3, equal unlabored respirations, skin warm/dry/pink. resting in bed with eyes closed, sitter at bedside. 10:30 Reassessment: Patient appears in no apparent distress at this time. No changes from jd3 previously documented assessment. Patient and/or family updated on plan of care and expected duration. Pain level reassessed. Patient is alert, oriented x 3, equal unlabored respirations, skin warm/dry/pink. 11:30 Reassessment: Patient appears in no apparent distress at this time. No changes from jd3 previously documented assessment. Patient and/or family updated on plan of care and expected duration. Pain level reassessed. Patient is alert, oriented x 3, equal unlabored respirations, skin warm/dry/pink. 12:30 Reassessment: Patient appears in no apparent distress at this time. No changes from jd3 previously documented assessment. Patient and/or family updated on plan of care and expected duration. Pain level reassessed. Patient is alert, oriented x 3, equal unlabored respirations, skin warm/dry/pink. 13:30 Reassessment: Patient appears in no apparent distress at this time. Patient and/or jd3 family updated on plan of care and expected duration. Pain level reassessed. Patient is alert, oriented x 3, equal unlabored respirations, skin warm/dry/pink. report given to [facility]. 14:30 Reassessment: Patient appears in no apparent distress at this time. No changes from jd3 previously documented assessment. Patient and/or family updated on plan of care and expected duration. Pain level reassessed. Patient is alert, oriented x 3, equal unlabored respirations, skin warm/dry/pink. 15:30 Reassessment: Patient appears in no apparent distress at this time. Patient and/or jd3 family updated on plan of care and expected duration. Pain level reassessed. Patient is alert, oriented x 3, equal unlabored respirations, skin warm/dry/pink. transfer from [facility]. Psych: 08/16 23:27 Baldwin Suicide Severity Screening: In the past month, have you wished you were tw5 or wished you could go to sleep and not wake up? Patient responds "yes." "In the past month, have you actually had any thoughts of killing yourself?" Patient responds "yes." "In your lifetime, have you ever done anything, started to do anything, or prepared to do anything to end your life?" Patient responds "yes.". Baldwin Suicide Severity Screening: "In the past month, have you actually had any thoughts of killing yourself?" "I took a garden hose and hung it up on the tree and I thought about hanging myself with it.". Subjective: Patient's mood is hopeless, Having thoughts of suicide. Plan for suicide is " I have thought about different way of hanging myself, but that is just when I am really drunk. I put out a call for help on facebook and several of my friends responded saying that they cared, so that is what kept me from hanging myself a couple of weeks ago.". Objective: Patient is cooperative, Speech is normal, Affect is appropriate. Interventions: Removed personal items and placed in bag. Patient placed in hospital gown. Belonging list filled out. Safety Checks: Personal items have been removed. Door is open. Patient uses daily. Patient uses methamphetamines. 08/17 15:46 Commitment: Patient will be a voluntary commitment. jd3 Vital Signs: 08/16 22:53 BP 169 / 115; Pulse 87; Resp 18 S; Temp 97.8(O); Pulse Ox 98% on R/A; Weight 68.04 kg as6 (R); Height 6 ft. (182.88 cm) (R); Pain 9/10; 23:57 BP 149 / 98; Pulse 67; Resp 18; Pulse Ox 98% on R/A; oe 08/17 07:01 BP 137 / 86; Pulse 75; Resp 18; Pulse Ox 97% on R/A; oe 08/16 22:53 Body Mass Index 20.34 (68.04 kg, 182.88 cm) as6 ED Course: 12 22:53 Patient arrived in ED. as6 22:56 Rory Matt MD is Attending Physician. mh7 23:02 Triage completed. as6 23:02 Arm band placed on. as6 23:02 Door closed. Noise minimized. Moved to private room. Warm blanket given. PO fluids tw5 given. Verbal reassurance given. Patient is placed in psych hold. One-on-one care X 15 minutes. 23:02 Sitter at bedside. Cardiac monitoring not applicable on this patient. Spoke to Dr. hussein Matt Patient on Suicide precautions as many cords as possible have been removed from the room. 23:02 Initial lab(s) drawn, by me, sent to lab. EKG done, by optical engineering technician. reviewed by Rory Matt MD COVID swab sent to lab. Maintain EMS IV. Dressing intact. Good blood return noted. Site clean \\T\\ dry. Gauge \\T\\ site: 18 G Left hand. 23:11 Bed in low position. Side rails up X2. as6 23:12 Anselmo Lieberman, RN is Primary Nurse. as6 23:18 XRAY Chest (1 view) In Process Unspecified. EDMS 08/17 02:28 Urine Culture Sent. tw5 02:47 Appears to be sleeping. tw5 02:59 Troponin (Emerg Dept Use Only) Sent. tw5 02:59 Troponin (emerg Dept Use Only) Sent. tw5 02:59 Urine Culture Sent. tw5 03:36 Spoke with Luzma with [facility] to initiate screening. tt3 03:52 Raf with [facility] called to screen the pt. tt3 05:32 Faxed pt chart to [facility] of [address] in regards to initiating transfer. 07:25 Attending Physician role handed off by Rory Matt MD gabriella 07:25 Kevin Malcolm MD is Attending Physician. gabriella 08:00 IV was discontinued by the patient. Inserted saline lock: 20 gauge in left hand, using jd3 aseptic technique. Blood collected. 08:06 Ammonia Sent. jd3 08:24 faxed chart to [facility]. bd 15:43 No provider procedures requiring assistance completed. jd3 15:45 IV discontinued, intact, bleeding controlled, No redness/swelling at site. Pressure jd3 dressing applied. Administered Medications: 02:06 Drug: Rocephin (cefTRIAXone) 1 grams Route: IV; Rate: per protocol; Site: right sm5 antecubital; 07:00 Follow up: Response: No adverse reaction; IV Status: Completed infusion jd3 08:06 Drug: Magnesium Sulfate 1 grams Route: IVPB; Infused Over: 1 hrs; Site: left hand; jd3 09:00 Follow up: Response: No adverse reaction; IV Status: Completed infusion jd3 08:06 Drug: Potassium Effervescent Tablet 25 mEq Route: PO; jd3 09:00 Follow up: Response: No adverse reaction jd3 14:39 CANCELLED (Physician Discretion): Lactulose 30 grams 45 ml PO once jd3 15:08 Drug: Nicoderm CQ Patch 21 mg/24 hr 1 patches Route: Transdermal; Site: affected area; jd3 15:42 Follow up: Response: No adverse reaction jd3 15:09 Drug: Ativan (LORazepam) 1 mg Route: IVP; Site: left hand; jd3 15:42 Follow up: Response: No adverse reaction jd3 15:09 Drug: Thiamine 100 mg Route: IV; Rate: bolus; Site: left hand; jd3 15:42 Follow up: Response: No adverse reaction; IV Status: Completed infusion jd3 15:42 Not Given (Physician Discretion): Ativan (LORazepam) 1 mg IVP once jd3 Outcome: 04:42 ER care complete, transfer ordered by 7 15:43 Condition: stable jd3 15:43 Instructed on the need for transfer, Demonstrated understanding of instructions. 15:45 Transferred by ground EMS Transfer form completed. Note: [place] [facility] jd3 15:46 Patient left the ED. jd3 Signatures: Dispatcher [employer] EDMS Franchesca Cotto Corey, MD MD cha Espinosa, Orlando oe Davies, Jonathon, RN RN jd3 Rory Matt MD MD 7 Roni Bhagat 3 Adelaide Roy 5 Anselmo Lieberman RN RN as6 Yumi Love RN RN sm5 Corrections: (The following items were deleted from the chart) 08:09 07:30 General: Appears in no apparent distress. comfortable, Behavior is calm, jd3 cooperative, appropriate for age, jd3 08:09 07:30 Pain: Complains of pain in generalized aches jd3 jd3
[2021-08-17] MEDS ORDERED: POTASSIUM 25 MEQ EFFERV TAB ONE (07:40)
[2021-08-17] MEDS ORDERED: MAGNESIUM SULFATE 1 gm IVPB 1 GM/100 ML BAG IV ONE (07:40)
--- NOTE | 2021-08-17 08:03 | RAD REPORT ---
EXAM DESCRIPTION: RAD - Chest Single View - 08/16/2021 11:18 pm CLINICAL HISTORY: Palpitations;SOB COMPARISON: Chest Single View dated 03/06/2021 FINDINGS: Lines: None. Lungs: No evidence of edema or pneumonia. Pleural: No significant pleural effusions or pneumothorax. Cardiac: The heart size is within normal limits. Bones: No acute fractures. Other: IMPRESSION: No acute cardiopulmonary disease.
--- NOTE | 2021-08-17 08:09 | EKG ---
Test Date: 2021-08-16 Test Time: 22:58:53 Head Counselor: TRINI MEASUREMENT RESULTS: Intervals: Rate: 85 IN: 120 QRSD: 96 QT: 398 QTc: 473 [place]: P: 47 IN: 120 QRS: 25 T: 44 INTERPRETIVE STATEMENTS: Normal sinus rhythm Moderate voltage criteria for LVH, may be normal variant Borderline ECG Compared to ECG 03/06/2021 20:45:32 Atrial fibrillation no longer present T-wave abnormality no longer present Possible ischemia no longer present Electronically Signed On 08-17-21 08:08:39 SPOT MACHINE OPERATOR by Dharmesh Sánchez
[2021-08-17] MEDS ORDERED: LORazepam 2 MG/ML VIAL ONE (14:55)
[2021-08-17] MEDS ORDERED: THIAMINE 200 MG/2 ML INJ ONE (14:55)
[2021-08-17] MEDS ORDERED: NICOTINE 21 MG/PAT TD ONE (15:04)
[2021-08-17 15:57] VITALS: TEMP 97.8
[2021-08-17 16:00] VITALS: BP 137/86; O2SAT 97
== END 2021-08-17 15:46 ==
LOC: ER 22:47
DX: F32.A Depression, unspecified (principal); F15.10 Other stimulant abuse, uncomplicated; F10.10 Alcohol abuse, uncomplicated; K74.60 Unspecified cirrhosis of liver; J44.9 Chronic obstructive pulmonary disease, unspecified; I10 Essential (primary) hypertension; F17.210 Nicotine dependence, cigarettes, uncomplicated; Z20.822 Contact with and (suspected) exposure to COVID-19
CPT/HCPCS: 0240U; 36415; 71045; 80048; 80076; 80307; 80320; 80329; 81003; 82140; 82550; 83735; 83880; 84443; 84484; 85025; 85379; 85610; 87086; 87088; 93005; 99285; J3411; J3475

== ENCOUNTER 2021-11-15 11:29 | Emergency (ER) | payer SELFPAY ==
--- OUTSIDE RECORDS SUMMARY | 2021-11-15 11:34 | XMS REPORT | Continuity of Care Document ---
:1975 Author Organization [facility] t Address [address] [place] [address] Care Team Providers Name Role Phone Pcp, Does Not Have A Primary Care Physician Sima Khan MD Attending Clinician MARIMAR_Tiffany Attending Clinician Unavailable Nelsno HERNADEZ Attending Clinician Unavailable BEVERLY Attending Clinician Unavailable ADONIS Attending Clinician Unavailable JOSE ALBERTO Admitting Clinician Unavailable Nelson HERNADEZ Admitting Clinician Unavailable BEVERLY Admitting Clinician Unavailable ADONIS Admitting Clinician Unavailable Payers Payer Name Policy Type Policy Number Effective Date Expiration Date S ource Problems This patient has no known problems. Allergies, Adverse Reactions, Alerts Allergy Allergy Status Severity Reaction(s) Onset Inactive Treating Comm ents Source Name Type Date Date Clinician No Known DA Active Unknown [facility] Allergie 05-07 [facility] - [facility] 00:00: Memoria 00 l (LUF/LI V/SA) Social History Social Habit Start Date Stop Date Quantity Comments Source Sex Assigned At [birth year] [facility] 00:00:00 00:00:00 [facility] Smoking Status Start Date Stop Date Source Unknown if ever smoked [facility] Branch Medications This patient has no known medications. Vital Signs Vital Name Observation Time Observation Value Comments Source Height 2020-01-21 23:50:00 182.88 CM Weight 2020-01-21 23:50:00 82 KG Procedures This patient has no known procedures. Encounters Start End Encounter Admission Attending Care Care Encounter Source Date/Time Date/Time Type Type Clinicians Facility Department ID 2021-08-17 2021-08-17 [place] [id number] 110 [facility] 14:57:00 23:59:00 Encounter [facility] [id number] [facility] of MEDICAL [id number] [facility] [id number] [facility] 060 Branch 2021-04-01 2021-04-01 Outpatient [facility] [place] 04:17:00 04:17:00 [id number] 2021-04-01 2021-04-01 Outpatient [facility] [place] 04:17:00 04:17:00 [facility] Results Test Description Test Time Test Comments Results Result Comments Source ALCOHOL, SERUM 2020-01-22 08:58:00 Test Item Value Reference Range Interpretation Comme nts Alcohol % (test code = ALCPC) 0.06 % 0.00-0.00 H Ethanol % 0.00 - 0.10 Sub-clinical 0.11 - 0 .20 Emotional Instability 0.21 - 0.30 Confusion 0.31 - 0.40 Stupor 0.41 - 0.5 0 Coma >.50 Fatal ALCOHOL, [id number] 05:29:00 Test Item Value Reference Range Interpretation Comments Alcohol % (test code = 0.12 % 0.00-0.00 H Jae ol % 0.00 - 0.10 ALCPC) Sub-clinical 0.11 - 0.20 Emotion al Instability 0.21 - 0.30 Confusion 0.31 - 0.40 Stupor 0.41 - 0.50 Co ma >.50 Fa megan DRUG SCREEN [id number] 01:27:00 Test Item Value Reference Range Interpretation Comments PH (test code = 5.5 UPH) Specific [place] 1.025 (test code = USPGR) FT (test [...] of Ab use ran on the Siemens Mansfield analyzer listed there in: Ampheta mines < 1000 ng/ml = Negative Barbituates < 200 ng/ml = Negat jamshid Benzodiazapines < 200 ngml = Negat jamshid Cocaine < 300 ng/ml = Negat jamshid Methadone < 300 ng/ml = Negat ajmshid Opiate < 300 ng/ml = Negat jamshid PCP < 25 ng/ml = Nega tive THC < 50 ng/ml = Negat jamshid Results equal t o or greater than th e above cut-off values = Presumptive Pos itive. Confirmation of Presumptive Pos itive results are ruddy ilable upon request. FT (test code = Negative THC) (qualifier value) URINALYSIS WITH [id number] 01:17:00 Test Item Value Reference Range Interpretation Comments Color (test code = UCOLR) Yellow Clarity (test code = Clear UCLAR) Glucose (test code = NEGATIVE NEGATIVE N UGLUC) Bilirubin (test code = Small NEGATIVE A UBILI) Ketones (test code = NEGATIVE NEGATIVE N UKET) Specific [place] (test 1.025 1.005-1.030 A code = USPGR) [...] Rare Fine Granular Cast CBC WITH AUTO [id number] 01:16:00 Test Item Value Reference Range Interpretation [...] (test code = TSH) 1.50 mIU/L 0.47-4.68 [id number] 01:07:00 Test Item Value Reference Range Interpretation [...] 4 - SerumAlbu min)] EGFR if >60 Thai (test code mL/min/1.73m\\ = EGFRAA) S\\2 EGFR if Non- >60 Estimate d Glomerular Thai (test code mL/min/1.73m\\ Filtrat ion Rate (eGFR) [...] management of c hronic kidney failure. ALCOHOL, [id number] 00:58:00 Test Item Value Reference Range Interpretation [...] code = ACET) <2 ug/ml 10-30 L [id number] 00:58:00 Test Item Value Reference Range Interpretation Comments CPK (test code = CPK) 130 U/L 30-135 SALICYLATES (Aspirin)2019-10-18 21:07:00 Test Item Value Reference Range Interpretation Comments Salicylate (test code <1.7 mg/dl 0.0-30.0 N Salicy lates Reference = SALI) Ranges: Therap eutic 15 - 30 mg/dl Toxicity >30 mg/dl Leth al >70 mg/dl ALCOHOL, [id number] 20:49:00 Test Item Value Reference Range Interpretation Comments Alcohol % (test code = 0 % 0.00-0.00 N Jae ol % 0.00 - 0.10 ALCPC) Sub-clinical 0.11 - 0.20 Emotional Instability 0.21 - 0.30 Confusion 0.31 - 0.40 Stupor 0.41 - 0.50 Coma >.50 Fatal ACETAMINOPHEN (Tyenol)2019-10-18 20:49:00 Test Item Value Reference Range Interpretation Comments Acetaminophen (test code = ACET) <2 ug/ml 10-25 L [id number] 20:49:00 Test Item Value Reference Range Interpretation [...] 4 - SerumAlbu min)] EGFR if >60 Thai (test code mL/min/1.73m\\ = EGFRAA) S\\2 EGFR if Non- >60 Estimate d Glomerular Thai (test code mL/min/1.73m\\ Filtrat ion Rate (eGFR) [...] c hronic kidney failure. CBC WITH AUTO [id number] 20:26:00 Test Item Value Reference Range Interpretation [...] = 0.4 % 0.0-0.4 IG%) DRUG SCREEN [id number] 20:08:00 Test Item Value Reference Range Interpretation Comments PH (test code = UPH) 6.0 Specific [place] >=1.030 (test code = USPGR) Amphetamines (test [...] Drugs o f Abuse ran on Siem[employer] Mansfield analyzer listed there in: Amphetamines < 1000 [...] = THC) Negative (qualifier value) URINALYSIS WITH [id number] 20:06:00 Test Item Value Reference Range Interpretation Comments Color (test code = UCOLR) Floyd Clarity (test code = Sl Cloudy UCLAR) Glucose (test code = 100 NEGATIVE A UGLUC) Bilirubin (test code = Small NEGATIVE A UBILI) Ketones (test code = NEGATIVE NEGATIVE N UKET) Specific [place] (test >=1.030 1.005-1.030 A code = USPGR) [...] Seen A = URCRYS) Oxalate DRUG SCREEN [id number] 04:26:00 Test Item Value Reference Range Interpretation Comments PH (test code = 6.0 UPH) Specific [place] 1.010 (test code = USPGR) Amphetamines (test [...] o f Abuse ran on e Siemens Mansfield analyzer listed there in: Ampheta mines < [...] Positive (test code = THC) URINALYSIS WITH [id number] 04:17:00 Test Item Value Reference Range Interpretation Comments Color (test code = UCOLR) Yellow Clarity (test code = UCLAR) Clear Glucose (test code = UGLUC) NEGATIVE NEGATIVE N Bilirubin (test code = UBILI) NEGATIVE NEGATIVE N Ketones (test code = UKET) NEGATIVE NEGATIVE N Specific [place] (test code = 1.010 1.005-1.030 A USPGR) [...] UBACT) None seen None Seen,Trace A TROPONIN-I [id number] 03:25:00 Test Item Value Reference Range Interpretation Comments Troponin-I (test <0.015 ng/ml 0.000-0.034 N [address] URL code = TROP) is 0.045 ng/mL for the Siemens Mansfield T roponin I. The Joint [place] pe[place] Society of Cardiology/ana [facility] College of Card iology (ESC/ACC) and t [facility] Clinical [employer] Standards of [place] boratory [...] clini amos event. XR CHEST AP/PA 1 [id number] 03:24:46EXAMINATION: XR CHEST AP/PA 1 VIEWINDICATION: Dyspnea.[id number]: [...] = ACET) <2 ug/ml 10-25 L ALCOHOL, [id number] 03:21:00 Test Item Value Reference Range Interpretation Comments Alcohol % (test code = 0.07 % 0.00-0.00 H Jae ol % 0.00 - 0.10 ALCPC) Sub-clinical 0.11 - 0.20 Emotion al Instability 0.21 - 0.30 Confusion 0.31 - 0.40 Stupor 0.41 - 0.50 Co ma >.50 Fa megan [id number] 03:12:00 Test Item Value Reference Range Interpretation [...] 4 - SerumAlbu min)] EGFR if >60 Thai (test code mL/min/1.73m\\ = EGFRAA) S\\2 EGFR if Non- >60 Estimate d Glomerular Thai (test code mL/min/1.73m\\ Filtrat ion Rate (eGFR) [...] and management of c hronic kidney failure. [id number] 03:12:00 Test Item Value Reference Range Interpretation Comments Lipase (test code = LIPA) 213 U/L 8-223 SALICYLATES (Aspirin)2019-10-05 03:09:00 Test Item Value Reference Range Interpretation Comments Salicylate (test code <1.7 mg/dl 0.0-30.0 N Salicy lates Reference = SALI) Ranges: Therap eutic 15 - 30 mg/dl Toxicity >30 mg/dl Leth al >70 mg/dl [id number] 02:58:00 Test Item Value Reference Range Interpretation Comments aPTT (test code = PTT) 27.4 seconds 25.3-35.7 PT AND [id number] 02:58:00 Test Item Value Reference Range Interpretation [...] 2. 5 - 3.5 CBC WITH AUTO [id number] 02:35:00 Test Item Value Reference Range Interpretation [...]
[2021-11-15] MEDS ORDERED: ONDANSETRON 4 MG/2 ML VIAL ONE (11:51)
[2021-11-15] MEDS ORDERED: MORPHINE 4 MG/ML SYR ONE (11:51)
[2021-11-15] MEDS ORDERED: FENTANYL CITR 100 MCG/2 ML ONE ×2 (12:14→14:12)
--- NOTE | 2021-11-15 12:49 | RAD REPORT ---
EXAM DESCRIPTION: RAD - Hip Left 2 View - 11/15/2021 12:35 pm CLINICAL HISTORY: PAIN, fall with blunt force trauma to the left hip region COMPARISON: No comparisons FINDINGS: AP and cross-table lateral views were obtained. Comminuted intertrochanteric and subtrochanteric fracture is seen. Femoral neck - shaft angle is redu marilyn. Lesser trochanter is a free fracture fragment. Femoral head and subcapital neck region are intac t. No dislocation. Left hemipelvis shows no acute finding. No foreign body in the soft tissues. IMPRESSION: Comminuted intertrochanteric fracture of the left femur as detailed.
[2021-11-15 12:50] LABS: Hematocrit 42.9 % (39.6-49.0); Lymphocytes % 17.9 % (15.3-44.8); MPV 8.7 fL (7.6-11.3); RBC Red Blood Cell Count 4.68 M/uL (4.33-5.43)
[2021-11-15 13:15] LABS: Blood Morphology Comment NOT SEEN (NOT SEEN); Platelet Estimate DECR; White Blood Cell Scan OK (OK)
[2021-11-15 13:36] LABS: BUN Blood Urea Nitrogen 10 mg/dL (7-18); Bicarbonate 22 mmol/L (21-32); Glucose Level 135 mg/dL (74-106); Sodium Level 138 mmol/L (136-145)
[2021-11-15 13:42] LABS: Potassium 2.9 mmol/L (3.5-5.1)
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
[2021-11-15 16:00] VITALS: O2SAT 98
[2021-11-15 16:01] VITALS: BP 148/84; TEMP 98.4
== END 2021-11-15 15:45 | disposition short-term general hospital (02) ==
LOC: ER 11:29
DX: S72.145A Nondisplaced intertrochanteric fracture of left femur, initial encounter for closed fracture (principal); W01.10XA Fall on same level from slipping, tripping and stumbling with subsequent striking against unspecified object, initial encounter; Y04.2XXA Assault by strike against or bumped into by another person, initial encounter; Y93.89 Activity, other specified; Y92.9 Unspecified place or not applicable; Z20.822 Contact with and (suspected) exposure to COVID-19
CPT/HCPCS: 36415; 80048; 85025; 96374; 96375; 99285; J2405; J3010; U0003

== ENCOUNTER 2021-11-22 23:17 | Emergency (ER) | payer SELFPAY ==
--- OUTSIDE RECORDS SUMMARY | 2021-11-22 23:21 | XMS REPORT | Continuity of Care Document ---
:1975 Author Organization [facility] t Address [address] [place] [address] Care Team Providers Name Role Phone Pcp, Does Not Have A Primary Care Physician Sima Khan MD Attending Clinician MARIMAR_Tiffany Attending Clinician Unavailable Nelson HERNADEZ Attending Clinician Unavailable BEVERLY Attending [...] Date Clinician No Known DA Active Unknown [facility] Allergie 05-07 [facility]: Memoria 00 l (LUF/LI V/SA) Social History Social Habit Start Date Stop Date Quantity Comments Source Sex Assigned At [birth year] [facility] 00:00:00 00:00:00 [facility] Smoking Status Start Date Stop Date Source Unknown if ever smoked [facility] Medications This patient has no known medications. Vital Signs Vital Name Observation Time Observation Value Comments Source Height 2020-01-21 23:50:00 182.88 CM Weight 2020-01-21 23:50:00 82 KG Procedures This patient has no known procedures. Encounters Start End Encounter Admission Attending Care Care Encounter Source Date/Time Date/Time Type Type Clinicians Facility Department ID 2021-08-17 2021-08-17 [place] [id number] [facility] 14:57:00 23:59:00 Encounter [facility] [id number] ity of MEDICAL [id number] [facility] [id number] [facility] 060 Branch 2021-04-01 2021-04-01 Outpatient [facility] [place] 04:17:00 04:17:00 [id number] 2021-04-01 2021-04-01 Outpatient [facility] [place] 04:17:00 04:17:00 1008 [facility] [...] - 0.5 0 Coma >.50 Fatal ALCOHOL, [id number] 05:29:00 Test Item Value Reference Range Interpretation Comments Alcohol % (test code = 0.12 % 0.00-0.00 H Jae ol % 0.00 - 0.10 ALCPC) Sub-clinical 0.11 - 0.20 Emotion al Instability 0.21 - 0.30 Confusion 0.31 - 0.40 Stupor 0.41 - 0.50 Co ma >.50 Fa megan DRUG SCREEN [id number] 01:27:00 Test Item Value Reference Range Interpretation Comments PH (test code = 5.5 UPH) Specific Shiner 1.025 (test code = USPGR) FT (test [...] of Ab use ran on the [employer] [place] analyzer listed there in: [place] mines < [...] = Negative THC) (qualifier value) URINALYSIS WITH [id number] 01:17:00 Test Item Value Reference Range Interpretation Comments Color (test code = UCOLR) Yellow Clarity (test code = Clear UCLAR) Glucose (test code = NEGATIVE NEGATIVE N UGLUC) Bilirubin (test code = Small NEGATIVE A UBILI) Ketones (test code = NEGATIVE NEGATIVE N UKET) Specific Shiner (test 1.025 1.005-1.030 A code = USPGR) [...] Rare Fine Granular Cast CBC WITH AUTO [id number] 01:16:00 Test Item Value Reference Range Interpretation [...] (test code = TSH) 1.50 mIU/L 0.47-4.68 [id number] 01:07:00 Test Item Value Reference Range Interpretation [...] 4 - SerumAlbu min)] EGFR if >60 Latvian (test code mL/min/1.73m\\ = EGFRAA) S\\2 EGFR if Non- >60 Estimate d Glomerular Latvian (test code mL/min/1.73m\\ Filtrat ion Rate (eGFR) [...] management of c hronic kidney failure. ALCOHOL, [id number] 00:58:00 Test Item Value Reference Range Interpretation [...] code = ACET) <2 ug/ml 10-30 L [id number] 00:58:00 Test Item Value Reference Range Interpretation Comments CPK (test code = CPK) 130 U/L 30-135 SALICYLATES (Aspirin)2019-10-18 21:07:00 Test Item Value Reference Range Interpretation Comments Salicylate (test code <1.7 mg/dl 0.0-30.0 N Salicy lates Reference = SALI) Ranges: Therap eutic 15 - 30 mg/dl Toxicity >30 mg/dl Leth al >70 mg/dl ALCOHOL, [id number] 20:49:00 Test Item Value Reference Range Interpretation Comments Alcohol % (test code = 0 % 0.00-0.00 N Jae ol % 0.00 - 0.10 ALCPC) Sub-clinical 0.11 - 0.20 Emotional Instability 0.21 - 0.30 Confusion 0.31 - 0.40 Stupor 0.41 - 0.50 Coma >.50 Fatal ACETAMINOPHEN (Tyenol)2019-10-18 20:49:00 Test Item Value Reference Range Interpretation Comments Acetaminophen (test code = ACET) <2 ug/ml 10-25 L [id number] 20:49:00 Test Item Value Reference Range Interpretation [...] 4 - SerumAlbu min)] EGFR if >60 Latvian (test code mL/min/1.73m\\ = EGFRAA) S\\2 EGFR if Non- >60 Estimate d Glomerular Latvian (test code mL/min/1.73m\\ Filtrat ion Rate (eGFR) [...] c hronic kidney failure. CBC WITH AUTO [id number] 20:26:00 Test Item Value Reference Range Interpretation [...] = 0.4 % 0.0-0.4 IG%) DRUG SCREEN [id number] 20:08:00 Test Item Value Reference Range Interpretation Comments PH (test code = UPH) 6.0 Specific Shiner >=1.030 (test code = USPGR) Amphetamines (test [...] Drugs o f Abuse ran on [employer] [place] analyzer listed there in: Amphetamines < 1000 [...] = THC) Negative (qualifier value) URINALYSIS WITH [id number] 20:06:00 Test Item Value Reference Range Interpretation Comments Color (test code = UCOLR) [place] Clarity (test code = Sl Cloudy UCLAR) Glucose (test code = 100 NEGATIVE A UGLUC) Bilirubin (test code = Small NEGATIVE A UBILI) Ketones (test code = NEGATIVE NEGATIVE N UKET) Specific Shiner (test >=1.030 1.005-1.030 A code = USPGR) [...] Seen A = URCRYS) Oxalate DRUG SCREEN [id number] 04:26:00 Test Item Value Reference Range Interpretation Comments PH (test code = 6.0 UPH) Specific Shiner 1.010 (test code = USPGR) Amphetamines (test [...] o f Abuse ran on e [employer] [place] analyzer listed there in: A[place] mines < [...] Positive (test code = THC) URINALYSIS WITH [id number] 04:17:00 Test Item Value Reference Range Interpretation Comments Color (test code = UCOLR) Yellow Clarity (test code = UCLAR) Clear Glucose (test code = UGLUC) NEGATIVE NEGATIVE N Bilirubin (test code = UBILI) NEGATIVE NEGATIVE N Ketones (test code = UKET) NEGATIVE NEGATIVE N Specific Shiner (test code = 1.010 1.005-1.030 A USPGR) [...] UBACT) None seen None Seen,Trace A TROPONIN-I [id number] 03:25:00 Test Item Value Reference Range Interpretation Comments Troponin-I (test <0.015 ng/ml 0.000-0.034 N [address] URL code = TROP) is 0.045 ng/mL for the [employer] [place] T roponin I. The Joint [employer] pean Society of Cardiology/[facility] College of Card iology (ESC/ACC) and t [facility] of Clinical [facility] francisco Standards of La boratory Practices (NACB [...] clini amos event. XR CHEST AP/PA 1 [id number] 03:24:46EXAMINATION: XR CHEST AP/PA 1 VIEWINDICATION: Dyspnea.[id number]: [...] = ACET) <2 ug/ml 10-25 L ALCOHOL, [id number] 03:21:00 Test Item Value Reference Range Interpretation Comments Alcohol % (test code = 0.07 % 0.00-0.00 H Jae ol % 0.00 - 0.10 ALCPC) Sub-clinical 0.11 - 0.20 Emotion al Instability 0.21 - 0.30 Confusion 0.31 - 0.40 Stupor 0.41 - 0.50 Co ma >.50 Fa megan [id number] 03:12:00 Test Item Value Reference Range Interpretation [...] 4 - SerumAlbu min)] EGFR if >60 Latvian (test code mL/min/1.73m\\ = EGFRAA) S\\2 EGFR if Non- >60 Estimate d Glomerular Latvian (test code mL/min/1.73m\\ Filtrat ion Rate (eGFR) [...] and management of c hronic kidney failure. [id number] 03:12:00 Test Item Value Reference Range Interpretation Comments Lipase (test code = LIPA) 213 U/L 8-223 SALICYLATES (Aspirin)2019-10-05 03:09:00 Test Item Value Reference Range Interpretation Comments Salicylate (test code <1.7 mg/dl 0.0-30.0 N Salicy lates Reference = SALI) Ranges: Therap eutic 15 - 30 mg/dl Toxicity >30 mg/dl Leth al >70 mg/dl [id number] 02:58:00 Test Item Value Reference Range Interpretation Comments aPTT (test code = PTT) 27.4 seconds 25.3-35.7 PT AND [id number] 02:58:00 Test Item Value Reference Range Interpretation [...] 2. 5 - 3.5 CBC WITH AUTO [id number] 02:35:00 Test Item Value Reference Range Interpretation [...]
[2021-11-23 00:12] LABS: Absolute Lymphocytes (CBC) 3.4 K/uL (0.7-4.9); Hematocrit 36.1 % (39.6-49.0); Lymphocytes % 30.3 % (15.3-44.8); MPV 7.6 fL (7.6-11.3); RBC Red Blood Cell Count 3.92 M/uL (4.33-5.43)
[2021-11-23 00:17] LABS: Protime INR 1.14
[2021-11-23 00:29] LABS: ALT/SGPT 56 U/L (12-78); AST/SGOT 67 U/L (15-37); Albumin 2.3 g/dL (3.4-5.0); Alkaline Phosphatase 89 U/L (45-117); BUN Blood Urea Nitrogen 8 mg/dL (7-18); Bicarbonate 21 mmol/L (21-32); Bilirubin Direct 0.5 mg/dL (0-0.2); Bilirubin Total 1.7 mg/dL (0.2-1.0); Creatine Phosphokinase 166 U/L (39-308); Glucose Level 104 mg/dL (74-106); Magnesium 1.7 mg/dL (1.8-2.4); NT PRO-BNP 21 pg/mL (<125); Potassium 3.4 mmol/L (3.5-5.1); Protein, Total 6.6 g/dL (6.4-8.2); Sodium Level 140 mmol/L (136-145)
[2021-11-23] MEDS ORDERED: MAGNESIUM SULFATE 1 gm IVPB 1 GM/100 ML BAG IV ONE (01:00)
[2021-11-23] MEDS ORDERED: POTASSIUM 25 MEQ EFFERV TAB ONE (01:00)
[2021-11-23 02:01] LABS: Urine Blood Negative (Negative); Urine Glucose Negative (Negative); Urine Protein Negative (Negative); Urine pH 5.5 (5.0-7.0)
[2021-11-23 02:30] LABS: Barbiturates NEGATIVE (NEGATIVE); Benzodiazepines NEGATIVE (NEGATIVE); Cocaine NEGATIVE (NEGATIVE); METHAMPHETAM POSITIVE (NEGATIVE); Methadone NEGATIVE (NEGATIVE); Opiates NEGATIVE (NEGATIVE); Phencyclidine NEGATIVE (NEGATIVE); THC Cannibis POSITIVE (NEGATIVE)
[2021-11-23 03:15] LABS: Urine Bacteria <20 /HPF (NONE SEEN)
[2021-11-23 03:16] LABS: Urine RBC NONE SEEN /HPF (NONE SEEN); Urine Urothelial Cells <5 /HPF (NONE SEEN)
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
--- NOTE | 2021-11-23 03:23 | EDPHYS ---
Physician Documentation [facility] Name: Alonso Leigh Age: 46 yrs Sex: Male : 1975 Arrival Date: 11/22/2021 Time: 23:20 Bed 5 Private MD: ED Physician Rory Matt HPI: 11/22 23:35 This 46 yrs old Male presents to ER via EMS with complaints of Left Leg Pain and cp Swelling. 23:35 The patient presents with an injury, pain, that is acute, swelling, tenderness. The cp complaints affect the left leg. Context: Patient reports he was seen in this ED approximately about 10 days ago for injury to left upper leg after heavy "beam" fell onto leg. Patient reports he was transferred to [facility] where he had surgical repair of left femur and was recently discharged to home with no f/u scheduled, no paperwork and he believes he was discharged too early. Patient reports he was walking from [place] to [place] this evening. Patient reports he was not instructed on any activity restrictions and is concerned he has an infection in left upper leg and he reports episode of bowel incontinence today. 23:35 Associated signs and symptoms: Pertinent positives: calf tenderness, swelling, cp Pertinent negatives fever, numbness, warmth. Treatment prior to arrival includes: no previous treatment. 23:38 Patient transferred to [facility] on 11-15-2021 for surgical repair of left femur cp intertrochanteric fracture. Historical: - Allergies: 23:28 No Known Allergies; sm5 - Home Meds: 23:28 gabapentin oral [Active]; Depakote Oral [Active]; sm5 - PMHx: 23:28 Chronic obstructive lung disease; cirrhosis of liver; depressive disorder; Hypertensive sm5 disorder; Seizure; Hepatitis C; - PSHx: 23:28 herina; R ankle; sm5 - Immunization history:: Client reports having NOT received the Covid vaccine. Flu vaccine is not up to date. - Social history:: Smoking status: Patient reports the use of cigarette tobacco products, smokes one pack cigarettes per day. Patient uses alcohol, on a daily basis. street drugs, Methamphetamine (Meth). ROS: 23:40 Constitutional: Negative for body aches, chills, fever, poor PO intake. cp 23:40 Cardiovascular: Negative for chest pain, palpitations. cp 23:40 MS/extremity: Positive for pain, swelling, tenderness, of the left leg. 23:40 Eyes: Negative for injury, pain, redness, and discharge. cp 23:40 ENT: Negative for drainage from ear(s), ear pain, sore throat, difficulty swallowing, difficulty handling secretions. 23:40 Respiratory: Negative for cough, shortness of breath, wheezing. 23:40 Abdomen/GI: Negative for abdominal pain, vomiting, diarrhea, constipation, black/tarry stool, rectal bleeding. 23:40 Back: Negative for pain at rest, pain with movement. 23:40 Neuro: Negative for altered mental status, dizziness, headache, weakness. cp 23:40 All other systems are negative. Exam: 23:45 Constitutional: The patient appears in no acute distress, alert, awake, cp non-diaphoretic, non-toxic, well developed, well nourished. 23:45 Head/Face: Normocephalic, atraumatic. cp 23:45 Eyes: Periorbital structures: appear normal, Conjunctiva: normal, no exudate, no cp injection, Sclera: no appreciated abnormality, Lids and lashes: appear normal, bilaterally. 23:45 ENT: External ear(s): are unremarkable, Nose: is normal, Mouth: Lips: moist, Oral cp mucosa: moist, Posterior pharynx: Airway: no evidence of obstruction, patent. 23:45 Neck: ROM/movement: is normal, is supple, without pain, no range of motions limitations. 23:45 Chest/axilla: Inspection: normal. 23:45 Cardiovascular: Rate: normal, Rhythm: regular, JVD: is not appreciated. 23:45 Respiratory: the patient does not display signs of respiratory distress, Respirations: normal, no use of accessory muscles, no retractions, labored breathing, is not present, Breath sounds: are clear throughout, no decreased breath sounds, no stridor, no wheezing. 23:45 Abdomen/GI: Inspection: abdomen appears normal, Bowel sounds: active, Palpation: abdomen is soft and non-tender, in all quadrants. 23:45 Back: pain, is absent, ROM is normal. 23:45 Musculoskeletal/extremity: Extremities: grossly normal except: noted in the left leg: swelling, tenderness, There is no evidence of erythema. 23:45 Skin: surgical scars noted to left hip and left mid lateral upper leg appear with no signs of infection. 23:45 Neuro: Orientation: to person, place, situation, Mentation: able to follow commands, Motor: moves all fours, strength is normal, Sensation: is normal. 11/23 00:25 ECG was reviewed by the Attending Physician. Vital Signs: 11/22 23:26 BP 153 / 87; Pulse 92; Resp 18; Temp 98.4(O); Pulse Ox 100% on R/A; Weight 83.91 kg; 5 Height 6 ft. 0 in. (182.88 cm); Pain 9/10; 11/23 00:45 BP 152 / 90; Pulse 84; Resp 17; Pulse Ox 99% on R/A; 5 03:24 BP 145 / 87; Pulse 91; Resp 18; Pulse Ox 98% on R/A; 5 11/22 23:26 Body Mass Index 25.09 (83.91 kg, 182.88 cm) [facility] MDM: 11/22 23:31 Patient medically screened. 11/23 00:00 Differential diagnosis: DVT, cellulitis, sepsis, pneumonia. 03:22 Data reviewed: vital signs, nurses notes, lab test result(s), EKG, radiologic studies, cp plain films, ultrasound, I have discussed the patient's presentation/case with the attending Emergency Department Physician; and as a result, I will discharge patient. 03:22 Test interpretation: by ED physician or midlevel provider: ECG, plain radiologic cp studies. Counseling: I had a detailed discussion with the patient and/or guardian regarding: the historical points, exam findings, and any diagnostic results supporting the discharge/admit diagnosis, lab results, radiology results, the need for outpatient follow up, a orthopedic surgeon, to return to the emergency department if symptoms worsen or persist or if there are any questions or concerns that arise at home. Response to treatment: the patient's symptoms have mildly improved after treatment, and as a result, I will discharge patient. 11/22 23:33 Order name: Basic Metabolic Panel; Complete Time: 00:49 cp 11/23 00:49 Interpretation: Normal except: K 3.4; CL 111; CRE 0.43; CA 7.5. cp 11/22 23:33 Order name: CBC with Diff; Complete Time: 00:49 cp 11/23 00:50 Interpretation: Normal except: WBC 11.1; RBC 3.92; HGB 12.7; HCT 36.1; PLT 166; MPV cp 7.6; MN% 12.8; MNA 1.4. 11/22 23:33 Order name: LFT's; Complete Time: 00:49 cp 11/23 00:50 Interpretation: Normal except: AST 67; BILIT 1.7; BILID 0.5; ALB 2.3; GLOB 4.3; A/G 0.5. 11/22 23:33 Order name: Magnesium; Complete Time: 00:49 cp 11/23 00:50 Interpretation: Abnormal: MG 1.7. cp 11/22 23:33 Order name: NT PRO-BNP; Complete Time: 00:49 cp 11/22 23:33 Order name: PT-INR; Complete Time: 00:49 cp 11/22 23:33 Order name: XRAY Chest (1 view) 11/22 23:33 Order name: US Extremity Venous W Compression Stevie cp 11/22 23:33 Order name: XRAY Femur LEFT cp 11/22 23:33 Order name: Urine Microscopic Only 11/22 23:37 Order name: UDS; Complete Time: 02:53 cp 11/23 02:54 Interpretation: Normal except: METHAMPHETAMINE POSITIVE; THC POSITIVE. 11/23 00:12 Order name: Creatine Phosphokinase; Complete Time: 00:49 EDMS 11/23 02:54 Interpretation: Reviewed. 11/23 02:02 Order name: Urine Dipstick-Ancillary; Complete Time: 02:53 EDMS 11/23 02:54 Interpretation: Reviewed. 11/22 23:33 Order name: EKG; Complete Time: 23:33 cp 11/22 23:33 Order name: Cardiac monitoring; Complete Time: 00:23 cp 11/22 23:33 Order name: EKG - Nurse/Tech; Complete Time: 00:23 cp 11/22 23:33 Order name: IV Saline Lock; Complete Time: 23:56 11/22 23:33 Order name: Labs collected and sent; Complete Time: 23:56 cp 11/22 23:33 Order name: O2 Per Protocol; Complete Time: 23:43 cp 11/22 23:33 Order name: O2 Sat Monitoring; Complete Time: 23:43 cp 03/27 23:33 Order name: Urine Dipstick-Ancillary (obtain specimen); Complete Time: 02:04 cp EC:25 Rate is 83 beats/min. Rhythm is regular. IN interval is normal. QRS interval is normal. cp QT interval is normal. T waves are Inverted in leads aVL, aVR. Interpreted by me. Reviewed by me. Administered Medications: 01:07 Drug: Magnesium Sulfate 1 grams Route: IVPB; Infused Over: 1 hrs; Site: right 5 antecubital; 02:04 Follow up: IV Status: Completed infusion; IV Intake: 100ml 5 01:07 Drug: Potassium Effervescent Tablet 50 mEq Route: PO; 5 02:29 Follow up: Response: No adverse reaction [facility] 01:41 Drug: NS 0.9% 500 ml Route: IV; Rate: bolus; Site: right antecubital; 5 02:00 Follow up: IV Status: Completed infusion; IV Intake: 500ml 5 Disposition: 04:45 Co-signature as Attending Physician, Rory Matt MD. 7 Disposition Summary: 11/23/21 03:23 Discharge Ordered Location: Home cp Problem: new cp Symptoms: have improved cp Condition: Stable cp Diagnosis - Adverse effect of amphetamines cp - Pain in left leg - post left hip surgery cp Followup: cp - With: Private Physician - When: 1 - 2 days - Reason: Recheck today's complaints Discharge Instructions: - Discharge Summary Sheet cp - Methamphetamines Use Disorder cp - Hip Rehabilitation in the Home cp - Intramedullary Nailing of Hip Fracture cp Forms: - Medication Reconciliation Form cp - Thank You Letter cp - Antibiotic Education cp - Prescription Opioid Use cp Prescriptions: - Ibuprofen 800 mg Oral Tablet - take 1 tablet by ORAL route every 8 hours As needed take with food; 30 tablet; cp Refills: 0, Product Selection Permitted Signatures: Dispatcher [employer] EDNV Kevin Turner PA PA cp Rory Matt MD MD [facility] Yumi Love RN RN 5 Corrections: (The following items were deleted from the chart) 00:12 11/22 23:43 CREATINE PHOSPHOKINASE+C.LAB.BRZ ordered. EDNV EDMS 11/23 03:25 03:23 Localized edema - left leg cp cp 22:16 11/22 23:35 Context: Patient reports he was seen in this ED approximately about 10 days cp ago for injury to left upper leg after heavy "beam" fell onto leg. Patient reports he was transferred to [facility] where he had surgical repair of left femur and was recently discharged to home with no f/u scheduled, no paperwork and he believes he was discharged too early. Patient reports he was walking from [place] to [place] this evening. Patient reports he was not instructed on any activity restrictions and is concerned he has an infection in left upper leg, cp
[2021-11-23 04:00] VITALS: TEMP 98.4
[2021-11-23 04:07] VITALS: BP 145/87; O2SAT 98
--- NOTE | 2021-11-23 09:26 | EKG ---
Test Date: 2021-11-23 Test Time: 00:17:52 Services Manager: SHELL MEASUREMENT RESULTS: Intervals: Rate: 83 SC: 126 QRSD: 94 QT: 404 QTc: 474 [place]: P: 54 SC: 126 QRS: 63 T: 65 INTERPRETIVE STATEMENTS: Normal sinus rhythm Minimal voltage criteria for LVH, may be normal variant Borderline ECG Compared to ECG 08/16/2021 22:58:53 No significant changes Electronically Signed On 11-23-21 09:25:40 CDT by Dharmesh Sánchez
--- NOTE | 2021-11-23 12:22 | RAD REPORT ---
EXAM DESCRIPTION: US - Extrem Venous W Compress Stevie - 11/23/2021 12:41 am CLINICAL HISTORY: Pain; Swelling . COMPARISON: None. TECHNIQUE: Grayscale, color Doppler, duplex Doppler, spectral Doppler images and analysis with compr ession and augmentation of right and left lower extremity veins. FINDINGS: Right and Left common femoral, greater saphenous, femoral, deep (profunda) femoral, poplit eal, posterior tibial veins unremarkable without evidence of clot. IMPRESSION: No sonographic evidence of right or left lower extremity DVT. Electronically signed by: Yair Corbin MD 11/23/2021 12:27 AM CDT Due to temporary technical issues with the PACS/Fluency reporting system, reports are being signed by the in house radiologist without review as a courtesy to ensure prompt reporting. The interpreting r adiologist is fully responsible for the content of the report.
--- NOTE | 2021-11-23 12:23 | RAD REPORT ---
EXAM DESCRIPTION: RAD - Femur Left - 11/23/2021 1:12 am CLINICAL HISTORY: The patient is 46 years old and is Male; PAIN TECHNIQUE: Frontal and lateral views of the left femur. COMPARISON: Radiographs November 15, 2021 FINDINGS: BONES/JOINTS: There has been interval ORIF of the comminuted and displaced intertrochant christopher fracture. The hardware is engaged without surrounding lucency. The femoral head is well located. No dislocation. SOFT TISSUES: Mild diffuse soft tissue swelling about the leg is present. IMPRESSION: Postsurgical change of the proximal left femur without radiographic evidence for hardwar e complication. Electronically signed by: Tata Howard MD 11/23/2021 1:17 AM CDT Due to temporary technical issues with the PACS/Fluency reporting system, reports are being signed by the in house radiologist without review as a courtesy to ensure prompt reporting. The interpreting r adiologist is fully responsible for the content of the report.
--- NOTE | 2021-11-23 12:30 | RAD REPORT ---
EXAM DESCRIPTION: RAD - Chest Single View - 11/23/2021 1:12 am CLINICAL HISTORY: 46 years Male, left leg swelling COMPARISON: None. FINDINGS: No consolidation. No pneumothorax. No significant pleural effusion. Cardiomediastinal silhouette is unremarkable. Osseous structures are unremarkable. IMPRESSION: No acute findings. Electronically signed by: Twan Burnett MD 11/23/2021 1:18 AM CDT Due to temporary technical issues with the PACS/Fluency reporting system, reports are being signed by the in house radiologist without review as a courtesy to ensure prompt reporting. The interpreting r adiologist is fully responsible for the content of the report.
== END 2021-11-23 03:36 | disposition home or self-care (01) ==
LOC: ER 23:17
DX: S72.142S Displaced intertrochanteric fracture of left femur, sequela (principal); Z98.890 Other specified postprocedural states; T43.625A Adverse effect of amphetamines, initial encounter; F17.210 Nicotine dependence, cigarettes, uncomplicated
CPT/HCPCS: 36415; 71045; 80048; 80076; 80307; 81003; 81015; 82550; 83735; 83880; 85025; 85610; 93005; 93970; 96365; 99284; J3475

== ENCOUNTER 2022-01-11 14:11 | Emergency (ER) | payer SELFPAY ==
--- OUTSIDE RECORDS SUMMARY | 2022-01-11 14:15 | XMS REPORT | Continuity of Care Document ---
:1975 Author Organization [facility] t Address [address] [place] [address] Care Team Providers Name Role Phone MARIMAR_Tiffany Attending Clinician Unavailable Nelson HERNADEZ Attending [...] Date Clinician No Known DA Active Unknown [facility] (LUF/LI V/SA) Medications This patient has no known medications. Vital Signs Vital Name Observation Time Observation Value Comments Source Height 2020-01-21 23:50:00 182.88 CM Weight 2020-01-21 23:50:00 82 KG Procedures This patient has no known procedures. Encounters Start End Encounter Admission Attending Care Care Encounter Source Date/Time Date/Time Type Type Clinicians Facility Department ID 2021-04-01 2021-04-01 Outpatient [facility] [id number] [place] 04:17:00 04:17:00 [facility] 2021-04-01 2021-04-01 [facility] [id number] [place] 04:17:00 04:17:00 [facility] [...] - 0.5 0 Coma >.50 Fatal ALCOHOL, [id number] 05:29:00 Test Item Value Reference Range Interpretation Comments Alcohol % (test code = 0.12 % 0.00-0.00 H Jae ol % 0.00 - 0.10 ALCPC) Sub-clinical 0.11 - 0.20 Emotion al Instability 0.21 - 0.30 Confusion 0.31 - 0.40 Stupor 0.41 - 0.50 Co ma >.50 Fa megan DRUG SCREEN [id number] 01:27:00 Test Item Value Reference Range Interpretation Comments PH (test code = 5.5 UPH) Specific [place] 1.025 (test code = USPGR) FT (test [...] of Ab use ran on the Siemens [place] analyzer listed there in: [place]mp[place] mines < [...] = Negative THC) (qualifier value) URINALYSIS WITH [id number] 01:17:00 Test Item Value Reference Range Interpretation Comments Color (test code = UCOLR) Yellow Clarity (test code = Clear UCLAR) Glucose (test code = NEGATIVE NEGATIVE N UGLUC) Bilirubin (test code = Small NEGATIVE A UBILI) Ketones (test code = NEGATIVE NEGATIVE N UKET) Specific [place] (test 1.025 1.005-1.030 A code = USPGR) [...] Rare Fine Granular Cast CBC WITH AUTO [id number] 01:16:00 Test Item Value Reference Range Interpretation [...] (test code = TSH) 1.50 mIU/L 0.47-4.68 [id number] 01:07:00 Test Item Value Reference Range Interpretation [...] 4 - SerumAlbu min)] EGFR if >60 Yemeni (test code mL/min/1.73m\\ = EGFRAA) S\\2 EGFR if Non- >60 Estimate d Glomerular Yemeni (test code mL/min/1.73m\\ Filtrat ion Rate (eGFR) [...] management of c hronic kidney failure. ALCOHOL, [id number] 00:58:00 Test Item Value Reference Range Interpretation [...] code = ACET) <2 ug/ml 10-30 L [id number] 00:58:00 Test Item Value Reference Range Interpretation Comments CPK (test code = CPK) 130 U/L 30-135 SALICYLATES (Aspirin)2019-10-18 21:07:00 Test Item Value Reference Range Interpretation Comments Salicylate (test code <1.7 mg/dl 0.0-30.0 N Salicy lates Reference = SALI) Ranges: Therap eutic 15 - 30 mg/dl Toxicity >30 mg/dl Leth al >70 mg/dl ALCOHOL, [id number] 20:49:00 Test Item Value Reference Range Interpretation Comments Alcohol % (test code = 0 % 0.00-0.00 N Jae ol % 0.00 - 0.10 ALCPC) Sub-clinical 0.11 - 0.20 Emotional Instability 0.21 - 0.30 Confusion 0.31 - 0.40 Stupor 0.41 - 0.50 Coma >.50 Fatal ACETAMINOPHEN (Tyenol)2019-10-18 20:49:00 Test Item Value Reference Range Interpretation Comments Acetaminophen (test code = ACET) <2 ug/ml 10-25 L [id number] 20:49:00 Test Item Value Reference Range Interpretation [...] 4 - SerumAlbu min)] EGFR if >60 Yemeni (test code mL/min/1.73m\\ = EGFRAA) S\\2 EGFR if Non- >60 Estimate d Glomerular Yemeni (test code mL/min/1.73m\\ Filtrat ion Rate (eGFR) [...] c hronic kidney failure. CBC WITH AUTO [id number] 20:26:00 Test Item Value Reference Range Interpretation [...] = 0.4 % 0.0-0.4 IG%) DRUG SCREEN [id number] 20:08:00 Test Item Value Reference Range Interpretation Comments PH (test code = UPH) 6.0 Specific [place] >=1.030 (test code = USPGR) Amphetamines (test [...] Drugs o f Abuse ran on Siemens [place] analyzer listed there in: Amphetamines < 1000 [...] = THC) Negative (qualifier value) URINALYSIS WITH [id number] 20:06:00 Test Item Value Reference Range Interpretation Comments Color (test code = UCOLR) [place] Clarity (test code = Sl Cloudy UCLAR) Glucose (test code = 100 NEGATIVE A UGLUC) Bilirubin (test code = Small NEGATIVE A UBILI) Ketones (test code = NEGATIVE NEGATIVE N UKET) Specific [place] (test >=1.030 1.005-1.030 A code = USPGR) [...] Seen A = URCRYS) Oxalate DRUG SCREEN [id number] 04:26:00 Test Item Value Reference Range Interpretation Comments PH (test code = 6.0 UPH) Specific [place] 1.010 (test code = USPGR) Amphetamines (test [...] Drugs o f Abuse ran on Siemens [place] analyzer listed there in: Amp[place] mines < [...] Positive (test code = THC) URINALYSIS WITH [id number] 04:17:00 Test Item Value Reference Range Interpretation Comments Color (test code = UCOLR) Yellow Clarity (test code = UCLAR) Clear Glucose (test code = UGLUC) NEGATIVE NEGATIVE N Bilirubin (test code = UBILI) NEGATIVE NEGATIVE N Ketones (test code = UKET) NEGATIVE NEGATIVE N Specific [place] (test code = 1.010 1.005-1.030 A USPGR) [...] UBACT) None seen None Seen,Trace A TROPONIN-I [id number] 03:25:00 Test Item Value Reference Range Interpretation Comments Troponin-I (test <0.015 ng/ml 0.000-0.034 N [employer] [address] URL code = TROP) is 0.045 ng/mL for the Siemens [place] T roponin I. The Joint [place] Society of Cardiology/Amer ican College of Card iology (ESC/ACC) and t he National Academ y of Clinical [place] franc[place] Standards of [place] [...] clini amos event. XR CHEST AP/PA 1 [id number] 03:24:46EXAMINATION: XR CHEST AP/PA 1 VIEWINDICATION: Dyspnea.[id number]: [...] = ACET) <2 ug/ml 10-25 L ALCOHOL, [id number] 03:21:00 Test Item Value Reference Range Interpretation Comments Alcohol % (test code = 0.07 % 0.00-0.00 H Jae ol % 0.00 - 0.10 ALCPC) Sub-clinical 0.11 - 0.20 Emotion al Instability 0.21 - 0.30 Confusion 0.31 - 0.40 Stupor 0.41 - 0.50 Co ma >.50 Fa megan [id number] 03:12:00 Test Item Value Reference Range Interpretation [...] 4 - SerumAlbu min)] EGFR if >60 Yemeni (test code mL/min/1.73m\\ = EGFRAA) S\\2 EGFR if Non- >60 Estimate d Glomerular Yemeni (test code mL/min/1.73m\\ Filtrat ion Rate (eGFR) [...] and management of c hronic kidney failure. [id number] 03:12:00 Test Item Value Reference Range Interpretation Comments Lipase (test code = LIPA) 213 U/L 8-223 SALICYLATES (Aspirin)2019-10-05 03:09:00 Test Item Value Reference Range Interpretation Comments Salicylate (test code <1.7 mg/dl 0.0-30.0 N Salicy lates Reference = SALI) Ranges: Therap eutic 15 - 30 mg/dl Toxicity >30 mg/dl Leth al >70 mg/dl [id number] 02:58:00 Test Item Value Reference Range Interpretation Comments aPTT (test code = PTT) 27.4 seconds 25.3-35.7 PT AND [id number] 02:58:00 Test Item Value Reference Range Interpretation [...] 2. 5 - 3.5 CBC WITH AUTO [id number] 02:35:00 Test Item Value Reference Range Interpretation [...]
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
[2022-01-11 19:19] VITALS: BP 135/99; TEMP 99.6; O2SAT 97
== END 2022-01-11 18:56 | disposition home or self-care (01) ==
LOC: ER 14:11
DX: R11.10 Vomiting, unspecified (principal); Z71.1 Person with feared health complaint in whom no diagnosis is made; J44.9 Chronic obstructive pulmonary disease, unspecified; F32.A Depression, unspecified; I10 Essential (primary) hypertension; K74.60 Unspecified cirrhosis of liver; B19.20 Unspecified viral hepatitis C without hepatic coma
CPT/HCPCS: 99282

== ENCOUNTER 2022-07-21 22:55 | Emergency (ER) | payer SELFPAY ==
--- OUTSIDE RECORDS SUMMARY | 2022-07-21 23:02 | XMS REPORT | Continuity of Care Document ---
:1975 Author Organization [facility] t Address [address] [place] [address] Care Team Providers Name Role Phone Pcp-None Primary Care Physician Unavailable BRI PATRICK Attending Clinician Unavailable AMBREEN_EDWAR Attending Clinician Unavailable Carmelo Cross Attending Clinician Unavailable MARIMAR_Tiffany Attending Clinician Unavailable NORMAN HERNADEZ Attending Clinician Unavailable RICK PAUL Attending Clinician Unavailable SUSANA LAMB Attending Clinician Unavailable AMBREEN_EDWAR Admitting Clinician Unavailable JOSE ALBERTO Admitting Clinician Unavailable NORMAN HERNADEZ Admitting Clinician Unavailable RICK PAUL Admitting Clinician Unavailable SUSANA LAMB Admitting Clinician Unavailable Payers Payer Name Policy Type Policy Number Effective Date Expiration Date S ource Problems This patient has no known problems. Allergies, Adverse Reactions, Alerts Allergy Allergy Status Severity Reaction(s) Onset Inactive Treating Comm ents Source Name Type Date Date Clinician No Known DA Active U [facility] 7[facility]18 Allergie 00:00: s 00 No Known DA Active U 2020-08 [facility] 2[facility]20 Allergie 00:00: s 00 No Known DA Active Unknown [facility] [...] Date/Time Type Type Clinicians Facility Department ID 2022-05-27 Inpatient KHOA COUCH [id number] [place] 19:31:[id number] [place] [address] 2022-05-26 Inpatient TEXCATY TEXCATY [id number] [place] 14:16:[id number] [place] [address] 2022-05-25 Inpatient TEXCATY TEXCATY [id number] [place] 11:08:[id number] [place] [address] 2022-05-24 Inpatient TEXCATY TEXCATY [id number] [place] 17:04:[id number] [place] [address] 2022-05-23 Inpatient TEXCATY COUCH [id number] [place] 04:16:[id number] [place] [address] 2022-02-15 Outpatient [facility] [id number] [place] 01:05:18 BRI [id number] [facility] 2022-05-21 2022-05-23 emergency [id number] 22:55:00 03:09:00 [id number] 2022-03-31 2022-03-31 Outpatient [facility] [id number] [facility] 00:00:00 00:00:00 HANA 0803 da [facility] 2022-03-15 2022-03-15 Emergency Emergency Carmelo Cross [facility] JM0 [id number] [facility] 00:00:00 05:40:00 98 2022-03-15 2022-03-15 Emergency Emergency Carmelo Cross [facility] JM0 [id number] [facility] 00:00:00 00:00:00 98 2021-04-01 2021-04-01 Outpatient [facility] [id number] [place] 04:17:00 04:17:00 [facility] Results Test Description Test Time Test Comments Results Result Comments Source Coronavirus PCR, COVID19 Rapid 2022-03-15 00:34:00 Test Item Value Reference Range Interpretation Comme nts Coronavirus PCR, COVID19 Rapid (test For use under Emergency Use code = SARSCOV2) Authorization (EUA) only. Coronavirus PCR, COVID19 Rapid (test Reference Range: Negative code = XVHVTGI54.1) SARS-CoV-2 PCR Result: (test code = Negative by RT-PCR SARS-CoV-2 PCR Result:) COVID-19 Status: AsymptomaticUA, Urinalysis Rflx Cult/[id number] 00:00:00 Test Item Value Reference Range Interpretation Comments Color,Urine (test code = UCOL) Yellow Yellow Clarity,Urine (test code = Clear Clear UCLAR) Ph, Urine (test code = UPH) 6.5 5.0-9.0 N Specific [place],Urine (test <= 1.005 1.005-1.030 N code = USG) Blood,Urine (test code = UBLD) Negative mg/dL Negative Protein,Urine (test code = Negative mg/dL Negative UPRO) Glucose,Urine (UA) (test code Negative mg/dL Negative = UGLU) Ketones,Urine (test code = Negative mg/dL Negative UKET) Nitrate,Urine (test code = Negative Negative UNIT) Bilirubin,Urine (test code = Negative mg/dL Negative UBIL) Urobilinogen,Urine (test code 0.2 E.U./dL Normal = UURO) Leukocyte Esterase,Urine (test Negative mg/dL Negative code = ULEU) Drug Screen,[id number] 00:00:00 Test Item Value Reference Range Interpretation Comments PCP Phencyclidine Screen,Urine (test Negative Negative code = PCPU) Amphetamine Screen,Urine (test code Negative Negative = AMPU) Methadone Screen,Urine (test code = Negative Negative METHU) Opiate Screen,Urine (test code = Negative Negative UOPIS) Barbituates Screen,Urine (test code Negative Negative = BARBU) Benzodiazepines Screen,Urine (test Negative Negative code = UBENZS) Cocaine Screen,Urine (test code = Negative Negative UCOCS) Cannabinoid Screen,Urine (test code Negative Negative = UTHCS) Propoxyphene Screen, Urine (test Negative Negative code = UPROP) Complete Blood Count Auto [id number] 00:00:00 Test Item Value Reference Range Interpretation Comments White Blood Count (test code = 7.1 x10 3/uL 4.4-10.5 N WBCT) Red Blood Count (test code = 4.19 x10 6/uL 4.10-5.70 N RBC) Hemoglobin (test code = HGBT) 13.9 g/dL 13.4-17.4 N Hematocrit (test code = HCTT) 40.3 % 38.7-52.0 N Mean Corpuscular Volume (test 96.20 fL 80.00-100.00 N code = MCV) Mean Corpuscular Hemoglobin 33.2 pg 27.0-32.5 H (test code = MCH) Mean Corpuscular HGB Conc 34.50 g/dL 32.00-37.50 N (test code = MCHC) RDW Coefficient of Variation 15.2 % 11.5-14.5 H (test code = RDWCV) Platelet Count (test code = 134.0 x10 3/uL 140.0-440.0 L PLTT) Mean Platelet Volume (test 9.9 fL code = MPV) Immature Granulocytes % (Auto) 1.0 % 0.0-5.0 N (test code = IMMGRAN%) Neutrophils % (Auto) (test 44.9 % 36.0-70.0 N code = NE%) Lymphocytes % (Auto) (test 35.6 % 12.0-44.0 N code = LY%) Monocytes % (Auto) (test code 15.7 % 0.0-11.0 H = MO%) Eosinophils % (Auto) (test 1.7 % 0.0-7.0 N code = EO%) Basophils % (Auto) (test code 1.1 % 0.0-2.0 N = BA%) Immature Granulocytes # (Auto) 0.07 x10 3/uL (test code = IMMGRAN#) Neutrophils # (Auto) (test 3.2 x10 3/uL 1.6-7.4 N code = NE#) Lymphocytes # (Auto) (test 2.51 x10 3/uL 0.50-4.60 N code = LY#) Monocytes # (Auto) (test code 1.11 x10 3/uL 0.00-1.20 N = MO#) Eosinophils # (Auto) (test 0.12 x10 3/uL 0.00-0.74 N code = EO#) Basophils # (Auto) (test code 0.08 x10 3/uL 0.00-0.21 N = BA#) nRBC Abs (test code = NRBCA) 0 nRBC Pct (test code = NRBCP) 0 % Comprehensive Metabolic [id number] 00:00:00 Test Item Value Reference Range Interpretation Comments SODIUM (test code = NA) 137.0 mmol/L 136.0-145.0 N Potassium,K (test code = K) 3.8 mmol/L 3.0-5.1 N Chloride (test code = CL) 109 mmol/L 98-107 H Carbon Dioxide (test code = 22 mmol/L 20-31 N CO2) Anion Gap (test code = GAP) 6 mmol/L 5-15 N Blood Urea Nitrogen (test code 8 mg/dL 9-23 L = BUN) Creatinine (test code = CREATT) 0.46 mg/dL 0.55-1.02 L Creatinine Clr Calc Pharmacy 222.58 mL/min (test code = CRCLPHA) Estimated GFR ( Sheila > 60 mL/min/1.73m2 (test code = EGFRAA) Estimated GFR (Non Afr Sheila > 60 mL/min/1.73m2 (test code = EGFRNAA) BUN/Creatinine Ratio (test code 17 ratio 10-20 N = BCRATIO) Glucose (test code = GLU) 89 mg/dL 74-106 N Osmolality,Calculated (test 280.8 code = OSMOC) Calcium (test code = CA) 7.6 mg/dL 8.3-10.6 L Bilirubin,Total (test code = 1.5 mg/dL 0.2-1.1 H BILIT) Aspartate Amino Transferase 130 U/L 0-34 H (test code = AST) Alanine Aminotransferase (test 73 U/L 10-49 H code = ALT) Total Protein (test code = TP) 6.4 g/dL 5.7-8.2 N Albumin Level (test code = ALB) 3.0 g/dL 3.2-4.8 L Globulin (test code = GLOB) 3.4 mg/dL 2.3-3.5 N Albumin/Globulin Ratio (test 0.9 ratio 0.8-2.0 N code = AGRATIO) Alkaline Phosphatase (test code 210 U/L 46-116 H = ALP) Creatine [id number] 00:00:00 Test Item Value Reference Range Interpretation Comments Creatine Kinase (test code = CK) 133 U/L 46-171 N Ethanol [id number] 00:00:00 Test Item Value Reference Range Interpretation Comments Ethanol (test code 245 mg/dL The pharm acological = ETOH) response to blo od alcohol levels mayvary from individual to i ndividual. The fatal cadence ntrationhas been reported t o be >400mg/dL. ALCOHOL, [id number] 08:58:00 Test Item Value Reference Range Interpretation Comments Alcohol % (test code = 0.06 % 0.00-0.00 H Jae ol % 0.00 - 0.10 ALCPC) Sub-clinical 0. 11 - 0.20 Emotional Insta bility 0.21 - 0.30 Con fusion 0.31 - 0.40 Yordy por 0.41 - 0.50 Coma >.50 Fatal [facility], [id number] 05:29:00 Test Item Value Reference Range Interpretation Comments Alcohol % (test code = 0.12 % 0.00-0.00 H Jae ol % 0.00 - 0.10 ALCPC) Sub-clinical 0. 11 - 0.20 Emotional Insta bility 0.21 - 0.30 Con fusion 0.31 - 0.40 Yordy por 0.41 - 0.50 Coma >.50 Fatal [facility] [id number] 01:27:00 Test Item Value Reference Range Interpretation Comments PH (test code = 5.5 UPH) Specific [place] 1.025 (test code = USPGR) FT (test code = Negative AMPHET) (qualifier value) FT (test code = Negative NISHA) (qualifier value) FT (test code = Negative BENZO) (qualifier value) FT (test code = Negative OBDULIA) (qualifier value) FT (test code = Negative MTD) (qualifier value) FT (test code = Negative OPIAT) (qualifier value) FT (test code = Negative The followin g table PCP) (qualifier provides an value) interpretive gu michel for the Drugs of Ab use ran on the [employer] [place] analyzer listed there in: Amphetamine s < 1000 ng/ml = Ne gative Barbituates < 2 00 ng/ml = Negativ e Benzodiazapines < 200 ngml = Negative Cocaine < 300 n g/ml = Negative Methad one < 300 ng/ml = Neg ative Opiate < 300 ng /ml = Negative PCP < 25 ng/ml = Negativ e THC < 50 ng/ml = Nega tive Results equal t o or greater than th e above cut-off values = Presumptive Pos itive. Confirmation of Presumptive Pos itive results are ruddy ilable upon request. FT (test code = Negative THC) (qualifier value) [facility] WITH [id number] 01:17:00 Test Item Value Reference Range Interpretation Comments Color (test code = UCOLR) Yellow Clarity (test code = Clear UCLAR) Glucose (test code = NEGATIVE NEGATIVE N UGLUC) Bilirubin (test code = Small NEGATIVE A UBILI) Ketones (test code = NEGATIVE NEGATIVE N UKET) Specific [place] (test 1.025 1.005-1.030 A code = USPGR) [...] A UR CAST) Rare Fine Granular Cast [facility] CenterCB WITH AUTO [id number] 01:16:00 Test Item Value Reference Range Interpretation [...] AKS PRESENT ON THE RBC HISTOGRAM. IN T HIS CASE, A MANUAL REVIEW OF THE SLIDE [...] (test code = 0.1 % 0.0-0.4 IG%) [facility] CenterSALICYLATES (Aspirin)2020-01-22 01:16:00 Test Item Value Reference Range Interpretation Comments Salicylate (test code <1.7 mg/dl 0.0-30.0 N Salicy lates Reference = SALI) Ranges: [place] 15 - 30 mg/dl [place] >30 mg/dl [place] >70 mg/dl [facility] (Ultra Sensitive)2020-01-22 01:07:00 Test Item Value Reference Range Interpretation Comments TSH (test code = TSH) 1.50 mIU/L 0.47-4.68 [facility] CenterCMP2020-05-26 01:07:00 Test Item Value Reference Range Interpretation [...] , each yielding differ ent values. This co rrected result was base d on the formula: Co rrected Calcium = Serum Calcium + [0.8 * ( 4 - SerumAlbumin)] EGFR if >60 [place] (test code mL/min/1.73m\\ = EGFRAA) S\\2 EGFR if Non- >60 Estimate d Glomerular [place] (test code mL/min/1.73m\\ Filtrat ion Rate (eGFR) = EGFRNA) S\\2 Reference Inter vals Decision Points for 18 years and older and average body ma ss: >= 60 Does not exc lude kidney disease. 30 - 59 Suggests mod erate chronic kidney disease and indicates t he need for further investigation including asses sment of proteinuria and cardiovascular factors. < 30 U sually indicates a nee d for referral for assessment and management of c hronic kidney failure. [facility], [id number] 00:58:00 Test Item Value Reference Range Interpretation Comments Alcohol % (test code = 0.20 % 0.00-0.00 H Jae ol % 0.00 - 0.10 ALCPC) Sub-clinical 0. 11 - 0.20 Emotional Insta bility 0.21 - 0.30 Con fusion 0.31 - 0.40 Yordy por 0.41 - 0.50 Coma >.50 Fatal [facility] CenterACETAMINOPHEN (Tyenol)2020-01-22 00:58:00 Test Item Value Reference Range Interpretation Comments Acetaminophen (test code = ACET) <2 ug/ml 10-30 L [facility] CenterCPK2020-05-26 00:58:00 Test Item Value Reference Range Interpretation Comments CPK (test code = CPK) 130 U/L 30-135 [facility] CenterSALICYLATES (Aspirin)2019-10-18 21:07:00 Test Item Value Reference Range Interpretation Comments Salicylate (test code <1.7 mg/dl 0.0-30.0 N Salicy lates Reference = SALI) Ranges: Therape utic 15 - 30 mg/dl [place] >30 mg/dl [place] >70 mg/dl [facility] CenterALCOH, [id number] 20:49:00 Test Item Value Reference Range Interpretation Comments Alcohol % (test code = 0 % 0.00-0.00 N Jae ol % 0.00 - 0.10 ALCPC) Sub-clinical 0. 11 - 0.20 Emotional Insta bility 0.21 - 0.30 Confusio n 0.31 - 0.40 Stupor 0.4 1 - 0.50 Coma >.50 Fatal [facility] CenterACETAMINOPHEN (Tyenol)2019-10-18 20:49:00 Test Item Value Reference Range Interpretation Comments Acetaminophen (test code = ACET) <2 ug/ml 10-25 L [facility] CenterCMP2020-02-20 20:49:00 Test Item Value Reference Range Interpretation [...] , each yielding differ ent values. This co rrected result was base d on the formula: Co rrected Calcium = Serum Calcium + [0.8 * ( 4 - SerumAlbumin)] EGFR if >60 [place] (test code mL/min/1.73m\\ = EGFRAA) S\\2 EGFR if Non- >60 Estimate d Glomerular [place] (test code mL/min/1.73m\\ Filtrat ion Rate (eGFR) = EGFRNA) S\\2 Reference Inter vals Decision Points for 18 years and older and average body ma ss: >= 60 Does not exc lude kidney disease. 30 - 59 Suggests mo derate chronic kidney disease and indicates t he need for further investigation including asses sment of proteinuria and cardiovascular factors. < 30 U sually indicates a nee d for referral for assessment and management of c hronic kidney failure. [facility] [place] WITH AUTO [id number] 20:26:00 Test Item Value Reference Range Interpretation [...] AKS PRESENT ON THE RBC HISTOGRAM. IN T HIS CASE, A MANUAL REVIEW OF THE SLIDE [...] (test code = 0.4 % 0.0-0.4 IG%) [facility] CenterDR[facility] SCREEN [id number] 20:08:00 Test Item Value Reference Range Interpretation Comments PH (test code = UPH) 6.0 Specific [place] >=1.030 (test code = USPGR) Amphetamines (test Positive code = AMPHET) BARBITUATES (test Positive code = NISHA) Benzodiazepines (test Positive code = BENZO) FT (test code = OBDULIA) Negative (qualifier value) FT (test code = MTD) Negative (qualifier value) FT (test code = Negative OPIAT) (qualifier value) FT (test code = PCP) Negative The fol lowing table (qualifier provides an value) interpretive gu michel for the Drugs o f Abuse ran on [employer] [place] analyzer listed there in: Amphetamines < 1000 ng/ml = Negativ e Barbituates < 2 00 ng/ml = Negativ e Benzodiazapines < 200 ngml = Nega tive Cocaine < 300 n g/ml = Negative Meth adone < 300 ng/ml = Negative Opiate < 300 ng/ml = Neg ative PCP < 25 ng/ml = Negative THC < 50 ng/ml = Negativ e Results equal t o or greater than e above cut-off v alues = Presumptive Positive. Confirmation of Presumptive Pos itive results are available upon request. FT (test code = THC) Negative (qualifier value) [facility] CenterURINALYSIS WITH [id number] 20:06:00 Test Item Value Reference Range Interpretation Comments Color (test code = UCOLR) [place] Clarity (test code = Sl Cloudy UCLAR) Glucose (test code = 100 NEGATIVE A UGLUC) Bilirubin (test code = Small NEGATIVE A UBILI) Ketones (test code = NEGATIVE NEGATIVE N UKET) Specific [place] (test >=1.030 1.005-1.030 A code = USPGR) [...] Calcium None Seen A = URCRYS) Oxalate [facility] CenterDRUG SCREEN [id number] 04:26:00 Test Item Value Reference Range Interpretation Comments PH (test code = 6.0 UPH) Specific [place] 1.010 (test code = USPGR) Amphetamines (test Positive code = AMPHET) FT (test code = Negative NISHA) (qualifier value) FT (test code = Negative BENZO) (qualifier value) FT (test code = Negative OBDULIA) (qualifier value) FT (test code = Negative MTD) (qualifier value) FT (test code = Negative OPIAT) (qualifier value) FT (test code = Negative The followin g table PCP) (qualifier provides an value) interpretive gu michel for the Drugs o f Abuse ran on [employer] [place] analyzer listed there in: Amphetamine s < 1000 ng/ml = Ne gative Barbituates < 2 00 ng/ml = Negativ e Benzodiazapines < 200 ngml = Negative Cocaine < 300 n g/ml = Negative Methad one < 300 ng/ml = Neg ative Opiate < 300 ng /ml = Negative PCP < 25 ng/ml = Negativ e THC < 50 ng/ml = Ne gative Results equal t o or greater than e above cut-off v alues = Presumptive Positive. Confirmation of Presumptive Pos itive results are ruddy ilable upon request. Cannabinoids, THC Positive (test code = THC) [facility]URINAL[facility] WITH [id number] 04:17:00 Test Item Value Reference Range Interpretation Comments Color (test code = UCOLR) Yellow Clarity (test code = UCLAR) Clear Glucose (test code = UGLUC) NEGATIVE NEGATIVE N Bilirubin (test code = UBILI) NEGATIVE NEGATIVE N Ketones (test code = UKET) NEGATIVE NEGATIVE N Specific [place] (test code = 1.010 1.005-1.030 A USPGR) [...] = UBACT) None seen None Seen,Trace A [facility] CenterTROPONIN-I [id number] 03:25:00 Test Item Value Reference Range Interpretation Comments Troponin-I (test <0.015 ng/ml 0.000-0.034 N [address] URL code = TROP) is 0.045 ng/mL for the [employer] [place] T roponin I. The Joint Europ sandra Society of Cardiology/Amer ican College of Card iology (ESC/ACC) and t [facility] [employer] francisco Standards of [...] 24 hours after the clini amos event. [facility] CenterXR CHEST AP/PA 1 [id number] 03:24:46 EXAMINATION: XR CHEST AP/PA 1 VIEWINDICATION: Dyspnea.[phone]: March 03, 2015.FINDINGS:TUBES and LINES: None.LUNGS: Lungs are well inflated. Lungs are clear. There is no evidence ofpneumonia or pulmonary edema.PLEURA: No pleural effusion or pneumothorax.HEART AND MEDIASTINUM: The cardiomediastinal silhouette is unremarkable.BONES AND SOFT TISSUES: No acute osseous lesion. Soft tissues areunremarkable.UPPER ABDOMEN: No free air under the diaphragm.IMPRESSION:No acute thoracic abnormality.This final report was electronically signed by Dr Yousif Casper MD 10/05/2019 3:18AMDictated By: Marlo RYANte: 10/05/2019 03:18[facility] PUTNAMACETAMINOPHEN (Tyenol)2019-10-05 03:21:00 Test Item Value Reference Range Interpretation Comments Acetaminophen (test code = ACET) <2 ug/ml 10-25 L [facility] CenterALCOHOL, [id number] 03:21:00 Test Item Value Reference Range Interpretation Comments Alcohol % (test code = 0.07 % 0.00-0.00 H Jae ol % 0.00 - 0.10 ALCPC) Sub-clinical 0. 11 - 0.20 Emotional Insta bility 0.21 - 0.30 Con fusion 0.31 - 0.40 Yordy por 0.41 - 0.50 Coma >.50 Fatal [facility] CenterCMP2020-02-07 03:12:00 Test Item Value Reference Range Interpretation [...] , each yielding differ ent values. This co rrected result was base d on the formula: Co rrected Calcium = Serum Calcium + [0.8 * ( 4 - SerumAlbumin)] EGFR if >60 [place] (test code mL/min/1.73m\\ = EGFRAA) S\\2 EGFR if Non- >60 Estimate d Glomerular [place] (test code mL/min/1.73m\\ Filtrat ion Rate (eGFR) = EGFRNA) S\\2 Reference Inter vals Decision Points for 18 years and older and average body ma ss: >= 60 Does not exc lude kidney disease. 30 - 59 Suggests mod erate chronic kidney disease and indicates t he need for further investigation including asses sment of proteinuria and cardiovascular factors. < 30 U sually indicates a nee d for referral for assessment and management of c hronic kidney failure. [facility] CenterLIPASE2020-02-07 03:12:00 Test Item Value Reference Range Interpretation Comments Lipase (test code = LIPA) 213 U/L 8-223 [facility] CenterSALICYLATES (Aspirin)2019-10-05 03:09:00 Test Item Value Reference Range Interpretation Comments Salicylate (test code <1.7 mg/dl 0.0-30.0 N Salicy lates Reference = SALI) Ranges: [place]rape ut[place] 15 - 30 mg/dl [place] >30 mg/dl [place] >70 mg/dl [facility] CenterPTT2020-02-07 02:58:00 Test Item Value Reference Range Interpretation Comments aPTT (test code = PTT) 27.4 seconds 25.3-35.7 [facility] AND [id number] 02:58:00 Test Item Value Reference Range Interpretation Comments Protime (test code 11.1 seconds 9.0-11.8 = PT) INR (test code = 1.1 0.9-1.1 INR results are INR) intended ONLY t o monitor Oral Anticoagulant t herapy in stablized pa tients. The INR Therape utic Range is 2.0 - 3.0 Patients with a mechanical hear t, the INR Range is 2. 5 - 3.5 [facility] WITH AUTO [id number] 02:35:00 Test Item Value Reference Range Interpretation [...] AKS PRESENT ON THE RBC HISTOGRAM. IN T HIS CASE, A MANUAL REVIEW OF THE SLIDE [...] (test code = 0.3 % 0.0-0.4 IG%) [facility] CenterXR elbow RT min 3V [facility] [address] [place] [address] Patient Name: Francis Leigh Medical Record#: [id number] Address: [address] City/State/Zip: [place] [address]: Carmelo Cross MD Insurance: [facility] /Age/Sex: 1975/46/M Self Pay Admit/Reg Date: 03/15/[address]: Carmelo Cross MD [facility]/ PCP: Pcp-Md SABRINA Morton Date of Service: 03/15/22 Order (s): XR elbow RT min 3V CPT Code: 77402 Report Number: [id number] Reason for Exam: fall 2 wks ago EXAM: XR ELBOW 3 VIEWS HISTORY: Fall. Pain. COMPARISON: None available at time of interpretation. FINDINGS: AP, oblique, and lateral view of the right elbow is provided. There is soft tissue swelling. There is no acute fracture or malalignment. No joint effusion is seen. The osseous structures are intact. IMPRESSION: No acuteosseous abnormality. Electronically signed by: Benny Lynne MD 03/15/2022 1:40 AM CDT Dictated By: Benny Lynne MD 03/15/22125 Signed By: Benny Lynne MD 03/15/22 0143 TD/TT: 03/15/22 012 Tech: [id number] cc: CALNO; [id number]* Carmelo Cross MD; Pcp- Md SABRINA Morton
--- NOTE | 2022-07-21 23:21 | RAD REPORT ---
EXAM DESCRIPTION: RAD - Chest Single View - 07/21/2022 11:08 pm CLINICAL HISTORY: CHEST PAIN COMPARISON: Chest Single View dated 11/23/2021; Chest Single View dated 08/16/2021; Chest Single View dated 03/06/2021 FINDINGS: Lines: None. Lungs: No evidence of edema or pneumonia. Pleural: No significant pleural effusions or pneumothorax. Cardiac: Mild cardiomegaly. Mediastinum: Within normal limits. Bones: No acute fractures. Other: None IMPRESSION: No acute cardiopulmonary disease.
[2022-07-21] MEDS ORDERED: CEFAZOLIN SODIUM 1 GM/VIAL ONE (23:30)
[2022-07-21] MEDS ORDERED: NA CHLORIDE 0.9% 100 ML IV ONE (23:31)
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
[2022-07-21 23:40] LABS: Absolute Lymphocytes (CBC) 2.7 K/uL (0.7-4.9); Hematocrit 47.8 % (39.6-49.0); Lymphocytes % 29.6 % (15.3-44.8); MCV 94.9 fL (80-100); MPV 8.3 fL (7.6-11.3); RBC Red Blood Cell Count 5.04 M/uL (4.33-5.43)
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
[2022-07-21 23:43] LABS: Protime INR 1.03
[2022-07-21] MEDS ORDERED: ONDANSETRON 4 MG/2 ML VIAL ONE (23:48)
[2022-07-21] MEDS ORDERED: MORPHINE 4 MG/ML SYR ONE (23:48)
[2022-07-22 00:07] LABS: Potassium 3.8 mmol/L (3.5-5.1)
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
[2022-07-22] MEDS ORDERED: MORPHINE 4 MG/ML SYR ONE ×2 (00:33→01:45)
[2022-07-22] MEDS ORDERED: NA CHLORIDE 0.9% 1,000 ML ONE (00:33)
[2022-07-22 01:02] LABS: SARS-CoV-2 Antigen Rapid Res Negative (Negative)
[2022-07-22 03:12] VITALS: TEMP 98.2
[2022-07-22 03:15] VITALS: BP 148/81; O2SAT 96
== END 2022-07-22 03:08 | disposition short-term general hospital (02) ==
LOC: ER 22:55
DX: S02.69XA Fracture of mandible of other specified site, initial encounter for closed fracture (principal); S02.671A Fracture of alveolus of right mandible, initial encounter for closed fracture
CPT/HCPCS: 36415; 70450; 70486; 71045; 72125; 76377; 80048; 80320; 82947; 85025; 85610; 85730; 87811; 96361; 96365; 96375; 99285; J0690; J2405; J7030